=== PATIENT | female | born 1940 | race Caucasian/White ===

== ENCOUNTER → 2019-09-03 16:44 | Outpatient (CLI) | payer OTHER, SELFPAY ==
--- NOTE | ~2019-09-03 | XR_ITS ---
EXAMINATION: XR chest 2V EXAM DATE: 09/03/2019 17:01 INDICATION: Other forms of dyspnea. TECHNIQUE: Frontal and lateral projections of the chest obtained and reviewed. There is no prior pari dy for comparison. FINDINGS: Approximately 1 cm nodular opacity in the right suprahilar region, possible intraparenchym al nodule; recommend chest CT for further evaluation. There is moderate hyperinflation. Azygos fissur e. Borderline heart size. No pneumothorax or pleural effusion. No confluent consolidation. Mild bony degenerative changes. IMPRESSION: Indeterminate right suprahilar nodular density; follow-up chest CT without contrast beatriz mmended. Reviewed, dictated and finalized at location A. IE MIXER HELPER IMPRESSION: Indeterminate right suprahilar nodular density; follow-up chest CT without contrast recommended.
== END ==
PROVIDERS: PCP Family Medicine; Visit Provider Family Medicine
DX: R06.09 Other forms of dyspnea (principal); R91.8 Other nonspecific abnormal finding of lung field
CPT/HCPCS: 71046

== ENCOUNTER 2019-09-15 07:45 | Outpatient (CLI) | payer OTHER, SELFPAY ==
--- NOTE | ~2019-09-15 | PE_ITS ---
EXAMINATION: PET skull to mid thigh DATE: 09/15/2019 09:48 INDICATION: Lung nodule TECHNIQUE: Blood glucose level was 118 mg/dL. 10.329 mCi of 18-fluorodeoxyglucose (18-FDG) was admini stered i.v. Low dose computed tomography (CT) images were acquired from the base of the brain to the proximal thighs for attenuation correction and anatomic localization. Positron emission tomography (P ET) images were acquired in the same distribution beginning 71 minutes after injection. COMPARISON: CT, 09/09/2019 FINDINGS: Head/neck: There is mildly increased FDG uptake in the area of the lingual and palatine tonsils with mild associated tonsillar enlargement, most consistent with hyperplasia. No suspicious FDG uptake is identified. Chest: There is a stable 1.6 x 1.1 cm groundglass nodule of the right upper lobe which does not demon strate associated abnormal FDG uptake. A 6 mm nodule in the anteromedial aspect of the left upper lob e and a 4 mm nodule of the right lung apex do not demonstrate associated FDG uptake although this cou ld be due to their small size. There are no pathologically enlarged thoracic lymph nodes. The heart s ize is normal. There is no pleural effusion or pneumothorax Abdomen/pelvis/proximal thighs: No abnormal FDG uptake is identified. Physiologic FDG activity is pre sent in the bowel and urinary tract. The liver, spleen, pancreas, gallbladder, and adrenal glands are normal. The right kidney is unremarkable. There is a 1.2 cm nonobstructing stone of the left kidney lower pole. A tiny fat-containing umbilical hernia is noted. Colonic diverticulosis is present withou t evidence of diverticulitis. Musculoskeletal: Mild FDG uptake in the glenohumeral joints appears to be related to degenerative sanna nge. No suspicious FDG uptake is identified. IMPRESSION: 1. 1.6 cm subsolid nodule of the right upper lobe, and smaller nodules of the upper lobes, without as sociated FDG uptake. Follow-up CT in three months is recommended. 2. Nonobstructing left nephrolithiasis. Reviewed, dictated and finalized at location A. DRIVER IMPRESSION: 1. 1.6 cm subsolid nodule of the right upper lobe, and smaller nodules of the u pper lobes, without associated FDG uptake. Follow-up CT in three months is beatriz mmended. 2. Nonobstructing left nephrolithiasis.
[2019-09-15 08:04] LABS: Glucose Point of Care 118 (65-105)
== END 2019-09-15 07:46 | disposition home or self-care (01) ==
PROVIDERS: PCP Family Medicine; Visit Provider Family Medicine
DX: R91.8 Other nonspecific abnormal finding of lung field (principal); N20.0 Calculus of kidney
CPT/HCPCS: 78815; A9552

== ENCOUNTER 2019-12-04 09:38 | Observation (INO) | payer OTHER, SELFPAY ==
[2019-12-04] VITALS (12 sets, daily range): BP systolic 127–178; BP diastolic 57–78; PULSE 57–80; RESP 16–22; TEMP 36.4–37; O2SAT 95–99
--- NOTE | ~2019-12-04 | XR_ITS ---
EXAMINATION: XR chest 1V 12/04/2019 10:31 INDICATION: Shortness of breath. Stroke symptoms. PROCEDURE: AP view of the chest COMPARISON: 04/03/2020 FINDINGS: There is bibasilar atelectasis. No focal pneumonia or edema. The cardiomediastinal silhouet te is is borderline sized. There are no pleural effusions. There is no pneumothorax suspected. IMPRESSION: 1: Bibasilar atelectasis. Reviewed, dictated and finalized at location A. IMPRESSION: 1: Bibasilar atelectasis.
--- NOTE | ~2019-12-04 | CT_ITS ---
EXAMINATION: CTA brain carotid EXAM DATE: 12/06/2019 09:00 INDICATION: Right thalamic mass. Transient ischemic attack with left hemiparesis. TECHNIQUE: Noncontrast head CT. Spiral CTA of the carotid arteries was performed with intravenous i njection 100 cc of Omnipaque 350. Axial, coronal, sagittal reformatted images reviewed. Additional r eformatted images created on dedicated 3-D workstation. NASCET comparable standard used to assess th e degree of arterial stenosis. Spiral CT angiogram cerebral arteries performed with the same intrave nous injection of contrast. Source images of the brain CTA transferred to dedicated workstation for 3 -D rotational image creation. Coronal, sagittal maximum intensity pixel images also reviewed. The d ose-length product (DLP) for this examination was 3198.31 mGy-cm. The exposure was tailored accordi ng to patient size, and iterative reconstruction (ASIR) was used as additional dose reduction techniq ue. There is no prior study for comparison. FINDINGS: There is mild bilateral carotid bulb plaque with 0% stenosis bilaterally. Mild bilateral ca rotid siphon plaque without stenosis. Vertebral arteries are essentially codominant. There is no car otid or vertebral basilar arterial dissection or fibromuscular dysplasia. There are no cerebral arter y aneurysms. There is symmetric cerebral artery arborization. The sagittal, transverse and sigmoid si nuses enhance normally, no venous sinus thrombosis. Internal cerebral veins also enhance normally. There is no acute intraparenchymal hemorrhage. Again there is 9 mm focus, mildly hyperdense region al lexus the posterior aspect of the right thalamus, previously described. Appearance is most suggestive o f a cavernoma. No evidence of acute infarction. There is no mass effect or midline shift. There is no obstructive hydrocephalus suspected. There are no extra-axial collections. There are no calvarial acute fractures. Azygos fissure. IMPRESSION: 1. No cervical arterial dissection or cerebral artery aneurysm. 2. Mild scattered carotid plaque with 0% stenosis bilaterally. 3. 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 Reviewed, dictated and finalized at location A. IMPRESSION: 1. No cervical arterial dissection or cerebral artery aneurysm. 2. Mild scattered carotid plaque with 0% stenosis bilaterally. 3. 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
--- NOTE | ~2019-12-04 | CT_ITS ---
EXAMINATION: CT brain wo con DATE: 12/04/2019 10:24 INDICATION: Left hemiparesis. TECHNIQUE: Computed tomography (CT) of the head was performed without intravenous contrast. The mA wa s adjusted according to patient size. Iterative reconstruction technique was employed. The dose-lengt h product was 605.33 mGy-cm. COMPARISON: PET/CT 09/15/2019 FINDINGS: There is a 9 mm hyperdense mass in the right thalamus posteriorly. There are scattered area s of low attenuation in the cerebral white matter, which is within normal limits for the patient's ag e. There is no acute ischemic infarct or intracranial hemorrhage. The ventricles are normal in size. There are likely changes of ocular lens replacement surgeries. There is mild mucosal thickening in th e paranasal sinuses. The mastoid air cells are normal. IMPRESSION: 1. 9 mm hyperdense mass in the right thalamus, stable from 09/15/19. The differential diagnosis includ es dystrophic calcification and cavernoma. Metastatic disease is unlikely given the lack of vasogenic edema. Brain MRI without and with contrast is recommended. Reviewed, dictated and finalized at location A. IMPRESSION: 1. 9 mm hyperdense mass in the right thalamus, stable from 09/15/19. The differe ntial diagnosis includes dystrophic calcification and cavernoma. Metastatic dis ease is unlikely given the lack of vasogenic edema. Brain MRI without and with contrast is recommended.
--- NOTE | ~2019-12-04 | US_ITS ---
EXAMINATION: US carotid duplex BI EXAM DATE: 12/05/2019 09:20 INDICATION: Left hemiparesis, numbness. TECHNIQUE: Grayscale, color and pulsed Doppler images of the cervical carotid arteries were obtained . The degree of vessel stenosis is placed in one of the following categories: normal, <50% stenosis, 50-69% stenosis, >=70% stenosis but less than near-occlusion, near-occlusion, or occlusion. Note that percent stenosis relative to normal distal artery lumen diameter is indirectly measured from velocit y measurements as described by Jason, et al. Radiology 2003; 229:340-346. There is no prior study fo r comparison. FINDINGS: RIGHT SIDE: Right common carotid artery peak systolic velocity (PSV in cm/s): 98 Right bulb/internal carotid artery peak systolic velocity (PSV in cm/s): 87 Right internal carotid artery end diastolic velocity (EDV in cm/s): 20 Right ICA/CCA peak systolic ratio: 0.9 Right external carotid artery peak systolic velocity (PSV in cm/s): 128 Right vertebral artery antegrade flow: yes There is no focal plaque identified. LEFT SIDE: Left common carotid artery peak systolic velocity (PSV in cm/s): 119 Left bulb/internal carotid artery peak systolic velocity (PSV in cm/s): 98 Left internal carotid artery end diastolic velocity (EDV in cm/s): 24 Left ICA/CCA peak systolic ratio: 0.8 Left external carotid artery peak systolic velocity (PSV in cm/s): 118 Left vertebral artery antegrade flow: yes There is minimal carotid bulb plaque. Velocity and Doppler waveforms in the common and internal carotid arteries is normal. IMPRESSION: 1. Normal right internal carotid artery. 2. Less than 50 percent stenosis in the left internal carotid artery. > Reviewed, dictated and finalized at location A.
--- NOTE | ~2019-12-04 | MR_ITS ---
EXAMINATION: MR brain/brain stem wo/w con EXAM DATE: 12/04/2019 16:42 INDICATION: Left-sided hemiparesis. TECHNIQUE: Magnetic resonance imaging (MRI) of the brain/brain stem obtained without contrast. Sagit pranay T1, axial diffusion, gradient echo (T2*), T1, T2, FLAIR sequences obtained. Patient was then inj ected 19 cc intravenous Multihance contrast. Axial and coronal postcontrast T1 weighted sequences obt ained. Correlation is made to head CT 12/04/2019. FINDINGS: There are no areas of restricted diffusion to suggest acute infarction. There is no acute hemorrhage seen on the T2*, a hemosiderin sensitive sequence. . There is a small mass in the posteri or aspect of the right thalamus, with a central focus of enhancement measuring about 4 mm in diameter , and some surrounding increased T2 signal intensity, region overall measuring about 9 mm in size. Th is does not demonstrate any restricted diffusion, but does demonstrate susceptibility on gradient-ech o sequence. Could be a cavernoma or other benign histology more likely than malignancy. There is mil d periventricular and subcortical T2/FLAIR signal hyperintensity, nonspecific but probably related to small vessel ischemic disease (microangiopathy). There is mild prominence of the sulci and ventric les related to cerebral atrophy. There are no extra-axial collections. Flow voids are seen in the cerebral arteries on the T2-weighted sequences consistent with their expected patency. The orbits ar e unremarkable. Soft tissue is unremarkable. IMPRESSION: 1. Right thalamic 9 mm mass, more likely cavernoma or other benign histology than malignancy. Are th ere any old head CTs at outside institution for comparison? This was also identified on noncontrast h ead CT and could be followed up with that modality in 3-6 months. 2. Chronic age related findings. Reviewed, dictated and finalized at location A. IMPRESSION: 1. Right thalamic 9 mm mass, more likely cavernoma or other benign histology t altman malignancy. Are there any old head CTs at outside institution for compariso n? This was also identified on noncontrast head CT and could be followed up wit h that modality in 3-6 months. 2. Chronic age related findings.
--- NOTE | 2019-12-04 09:49 | ECG_ITS ---
Measurements Intervals [place] Rate: 61 P: 62 RI: 223 QRS: 4 QRSD: 100 T: 30 QT: 398 QTc: 404 Interpretive Statements SINUS RHYTHM WITH SINUS ARRHYTHMIA WITH FIRST DEGREE AV BLOCK BASELINE ARTIFACT- I, II, III ABNORMAL ECG Electronically Signed On 12-04-2019 15:07:22 CDT by Singh Camargo D.O.
--- NOTE | 2019-12-04 10:07 | ED.NEUROSD ---
HPI - Neuro Symptoms/Deficit General Chief Complaint: Neuro Symptoms/Deficit Stated Complaint: L SIDED WEAKNESS Time Seen by Provider: 12/04/19 09:44 History of Present Illness HPI Narrative: Patient is a 79-year-old female who presents to the ER with sudden onset left-sided weakness and slurred speech. Began at 9 AM. Lasted for approximately 15 minutes. Her left foot and arm felt heavy and tingly. Symptoms ascended from the foot to the arm. Patient also felt some head pressure. She reports blurriness in her left eye. Had some mild chest pressure afterwards. Patient's headache totally resolved in route with EMS. Patient is currently being worked up for some lung lesions that they do not think are cancerous at this time. Related Data Home Medications Medication Instructions Recorded Confirmed cholecalciferol (vitamin D3) 2,000 unit PO DAILY 12/04/19 12/04/19 [Vitamin D3] coQ10 (ubiquinol) 200 mg PO DAILY 12/04/19 12/04/19 diclofenac sodium 50 mg PO HS 12/04/19 12/04/19 famotidine [Pepcid] 20 mg PO DAILY 12/04/19 12/04/19 Allergies Allergy/AdvReac Type Severity Reaction Status Date / Time No Known Allergies Allergy Verified 12/04/19 09:53 Review of Systems Review of Systems: All systems reviewed & are unremarkable except as noted in HPI and below Constitutional: Constitutional: Denies chills, Denies fever(s) and Denies weakness ENT: Denies dizziness and Denies sore throat Cardiovascular: Cardiovascular: Reports chest pain, Denies rapid heart rate and Denies radiating jaw, neck or arm pain Respiratory: Respiratory: Denies cough, Denies dyspnea and Denies wheezing Gastrointestinal: Gastrointestinal: Denies abdominal pain, Denies nausea and Denies vomiting Neurologic: Denies dizziness, Denies syncope, Reports headache(s), Reports focal weakness and Reports numbness Comments: Mild slurring of speech PMFSH Social History Social History Smoking status: Never smoker Second hand tobacco smoke exposure: No Alcohol intake: current Drinks per week: 1 Substance use: never Substance use type: does not use Gender identity (if verbalized by the patient): Female Spiritual care concerns: No Agree to blood products: No Exam Narrative: Exam Narrative: GENERAL: Well-appearing, well-nourished, and in no acute distress. HEAD: Normocephalic, atraumatic. EYES: PERRL and EOMI. ENT: Mucous membranes moist. CHEST: Clear to auscultation. No respiratory distress. HEART: Regular rate and rhythm. Normal peripheral pulses. ABDOMEN: Soft, nontender, nondistended. EXTREMITIES: Normal range of motion. No edema. SKIN: Warm, dry, no rash. NEURO: No focal deficits. No upper or lower extremity drift. Cranial nerves II through XII intact. No dysarthria or expressive aphasia. Alert and oriented x3. PSYCH: Normal mood and affect. Course Course Emergency Course: Patient and family informed of results. Admit to hospital service to obtain MRI and observe for TIA. Vital Signs Vital signs: Vital Signs Temperature 98.6 F 12/04/19 09:37 Pulse Rate 77 12/04/19 09:37 Respiratory Rate 22 H 12/04/19 09:37 Blood Pressure 178/69 H 12/04/19 09:37 Pulse Oximetry 99 12/04/19 09:37 Temperature 98.6 F 12/04/19 09:37 Pulse Rate 65 12/04/19 14:43 Respiratory Rate 20 12/04/19 14:43 Blood Pressure 130/70 12/04/19 12:54 Pulse Oximetry 95 12/04/19 14:43 MDM - Neuro Symptoms/Deficit Lab Data Result diagrams: 12/04/19 10:13 12/04/19 10:13 Labs: Lab Results 12/04/19 12/04/19 12/04/19 Range/Units 10:13 10:13 10:13 WBC 6.4 (4.5-10.0) K/mm3 RBC 4.67 (4.2-5.4) M/mm3 Hgb 14.0 (12.0-15.0) g/dL Hct 42.6 (37.0-47.0) % MCV 91.2 (80-100) fl MCH 30.0 (26-34) pg MCHC 32.9 (32-36) g/dl RDW 12.2 (11.5-14.5) % Plt Count 231 (150-375) k/mm3 MPV 10.4 (7.4-10.4)
[2019-12-04 10:32] LABS: Basophils Percent Auto 0.5 % (0.2-1.2); Eosinophils Absolute Auto 0.3 K/mm3 (0-0.3); Eosinophils Percent Auto 3.9 % (0-4.4); Hematocrit 42.6 % (37.0-47.0); Immature Granulocyte Absolute 0.02 K/mm3 (0.00-0.031); Immature Granulocyte Percent A 0.3 % (0-0.5); Lymphocytes Absolute Auto 2.64 K/mm3 (0.9-3.2); Lymphocytes Percent Auto 41.4 % (18.3-44.2); Mean Corpuscular HGB Conc 32.9 g/dl (32-36); Mean Corpuscular Volume 91.2 fl (80-100); Mean Platelet Volume 10.4 fl (7.4-10.4); Monocytes Absolute Auto 0.5 K/mm3 (0.1-0.6); Monocytes Percent Auto 8.3 % (2.6-8.5); Neutrophils Absolute Auto 2.9 K/mm3 (1.3-6.7); Neutrophils Percent Auto 45.6 % (45.5-73.1); Platelet Count Result 231 k/mm3 (150-375); Red Blood Count 4.67 M/mm3 (4.2-5.4); Red Cell Distribution Width 12.2 % (11.5-14.5); White Blood Count 6.4 K/mm3 (4.5-10.0)
[2019-12-04 10:37] LABS: Add Urine Microscopic? YES; Appearance Urine Clear (Clear); Bacteria Urine Trace /hpf; Bilirubin Urine Negative (Negative); Blood Urine Negative (Negative); Color Urine Yellow (Yellow); Glucose Urine UA Negative (Negative); Ketones Urine Negative (Negative); Leukocyte Esterase Ur 1+ LEU/UL (Negative); Mucus Urine Rare /lpf; Nitrate Urine Negative (Negative); Protein Urine Negative (Negative); RBC Urine 0-2 /hpf (0-2); Specific Grav Ur 1.014 (1.001-1.035); Squamous Epithelial Cell Urine Occasional /hpf (Few); Urobilinogen Urine Negative mg/dL (<2.0)
[2019-12-04 10:42] LABS: INR 0.9
[2019-12-04 10:43] LABS: Partial Thromboplastin Time 23.5 SECONDS (22.3-36.8)
[2019-12-04 10:44] LABS: Blood Urea Nitrogen 18 mg/dL (7-17); Calcium 10.6 mg/dL (8.4-10.2); Carbon Dioxide 27 mmol/L (22-30); Chloride 108 mmol/L (98-107); Estimated CRCL calculation 82 ml/min; Estimated Glomerular Filt Rate > 60; Glucose 103 mg/dL (65-105); Potassium 4.4 mmol/L (3.4-5.0); Sodium 139 mmol/L (137-145)
[2019-12-04 10:55] LABS: Troponin I < 0.012 ng/mL (0.000-0.034)
--- NOTE | 2019-12-04 13:00 | ADMGEN ---
This patient, Patricia Damon, was admitted to 3 Medical Room 346-. Patient/family oriented to hospital policies and general routines including ID bracelet, bed and alarms, visiting hours, pain management, procedures, bathroom and other care routines, personal items, smoking policy, room service/diet, and visiting hours. Valuables list has been completed. Information on how to activate the Rapid Response Team has been discussed. Patient/Family are encouraged to report perceived risks to care and to ask questions if they do not understand what they are told or what they should do.
--- NOTE | 2019-12-04 14:55 | ECHO_ITS ---
Patient Info Name: Patricia Damon Age: 79 years : 1940 Gender: Female Ht: 69 in Wt: 209 lbs BSA: 2.18 m2 HR: 62 bpm BP: 130 / 70 mmHg Technical Quality: Fair Exam Date: 12/04/2019 3:11 PM Exam Location: [facility] Patient Status: Outpatient Admit Date: 12/04/2019 Staff Ordering Physician: Rukhsana Ralph PA-C Buildings And Grounds Coordinator: Leonardo Mclain RDCS, RT Attending Provider: Monet Molina MD Referring Physician: Loree LOPEZ; Exam Type: CA echo doppler color flow Study Info Indications G45.9 - Transient cerebral ischemic attack, unspecified Complete two-dimensional, color flow and Doppler transthoracic echocardiogram is performed. Summary 1. Left ventricular chamber dimension is normal. 2. Left ventricular systolic function is normal, estimated at 60-65%. 3. There is mildly increased left ventricular wall thickness. 4. The left ventricular diastolic function is grade I diastolic dysfunction. 5. E/e' 8 is minimally elevated. 6. Global longitudinal strain is normal at -18.5%. 7. Dilated inferior vena cava with >50% collapse upon inspiration consistent with elevated right atrial pressure, 10 mmHg. Left Ventricle E/e' 8 is minimally elevated. Global longitudinal strain is normal at -18.5%. Left ventricular chamber dimension is normal. Left ventricular systolic function is normal, estimated at 60-65%. There is mildly increased left ventricular wall thickness. The left ventricular diastolic function is grade I diastolic dysfunction. Right Ventricle Right ventricular chamber dimension is normal. Right ventricular systolic function is normal. Left Atria Left atrial chamber dimension is normal. Right Atria Right atrial chamber dimension is normal. Aortic Valve The aortic valve is trileaflet. There is no aortic valve stenosis. There is no aortic valve regurgitation. Pulmonic Valve There is no pulmonic regurgitation. Mitral Valve There is no mitral valve stenosis. There is no mitral valve regurgitation. Tricuspid Valve There is no tricuspid valve regurgitation. Pericardium/Pleural There is no pericardial effusion. Inferior Vena Cava Dilated inferior vena cava with >50% collapse upon inspiration consistent with elevated right atrial pressure, 10 mmHg. Aorta The aortic root size at the sinus of Valsalva is normal. Left Ventricular Outflow Tract Name Value Normal LVOT Doppler LVOT Peak Gradient 3 mmHg LVOT Mean Gradient 2 mmHg LVOT VTI 22 cm LVOT VTI/AV VTI Ratio 0.9 Mitral Valve Name Value Normal MV Doppler MV Decel [place] 257 cm/s2 MV PHT 77 ms MV Area (PHT) 2.9 cm2 4.0-5.0 MV Diastolic Function MV E Peak Velocity 68 cm/s
--- NOTE | 2019-12-04 20:45 | PM.IMHP ---
H&P: HPI History of Present Illness Chief complaint: Left-sided weakness. Narrative: Patricia Damon is a very pleasant 79-year-old female, right hand dominant, with osteoarthritis, thyroid goiter, and pre diabetes who presented to the emergency department earlier this morning via EMS from home for evaluation of left-sided weakness. She was in her usual state of health when she woke this morning. Not long prior to arrival, she was ambulating to the kitchen while sending a text message when she developed sudden onset left-sided weakness with her lower extremity being more affected than her upper extremity. At that time, her left visual field seemed to be a bit blurry and ?my head felt full.? She went to sit down in a chair, and notes that her left leg felt heavy and that she was dragging it somewhat. She then phoned her daughter, who in turn called EMS. Within approximately 10 minutes, her symptoms had improved enough that she was able to ambulate to the door to let the paramedics in to the home. Within approximately 2 hours, her symptoms completely resolved. She denies dysarthria but her daughter did think that her speech was perhaps a bit slurred. At the time my evaluation, her only complaint is of a mild headache. She has never had similar symptoms in the past. No vertigo. No palpitations or history of cardiac dysrhythmia. She has never been diagnosed with hypertension or dyslipidemia. Review of Systems Review of Systems: Narrative: Twelve systems were reviewed with pertinent positives and negatives as per HPI. No fever, chills, or sweats. No recent cold or flu-like symptoms. She has rarely had dysphagia over the years, which has been attributed to thyroid goiter. She has an upcoming appoint with an shot packer for evaluation of this in addition to pre diabetes and possible hyperparathyroidism due to persistent mild hypercalcemia. She has been having issues with her left shoulder since sustaining in fall in December 2018 and has done several rounds of physical therapy without a whole lot of benefit. She is now taking diclofenac for that, in addition to other arthritic pains. Additionally, she mentions carpal tunnel symptoms in the right hand for which she is beginning to wear brace. No exertional chest pain. She has been having shortness of breath, and in fact saw Dr. Stoddard recently who recommended outpatient pulmonary function tests and stress Lexiscan. Additionally, the patient is being followed by Dr. Stoddard for pulmonary nodules. Appetite has been good. No nausea, vomiting, or diarrhea. Weight has been stable. Except as documented, all other systems were reviewed and are negative. [facility] Past Medical History Medical History (Updated 12/04/19 @ 22:09 by Rukhsana Ralph PA-C) Abnormal stress test In December 2005. Cardiac catheterization in January 2006 was reportedly unremarkable. Basal cell carcinoma Excised from the nose. Hyperlipidemia Multinodular non-toxic goiter Nephrolithiasis Nodule of right lung Being monitored by Dr. Stoddard. PET CT 09/15/2019 revealed several nodules without abnormal FDG uptake. Repeat chest CT scheduled in the next month or so. Osteoarthritis Pre-diabetes Vitamin D deficiency Surgical History Surgical History (Updated 12/04/19 @ 22:06 by Rukhsana Ralph PA-C) History of Achilles tendon repair History of arthroscopy of left knee History of cataract extraction History of partial hysterectomy History of radial keratotomy History of tonsillectomy History of total knee replacement History of tubal ligation Family History Family History (Updated 12/04/19 @ 22:15 by Rukhsana Ralph PA-C) Mother Family history of cardiovascular disease Sibling Family history of malignant neoplasm Family history of diabetes mellitus in first degree relative Family history of congestive heart failure Father Family history of lung cancer Son Parkinson disease Other Depression Diabetes mellitus Family hi
[2019-12-04] MEDS: ASPIRIN 81 MG CHEWABLE TABLET 324 MG PO (23:56)
[2019-12-05] VITALS (10 sets, daily range): BP systolic 110–140; BP diastolic 59–60; PULSE 58–84; RESP 16; TEMP 36.3–36.5; O2SAT 97–98
[2019-12-05 05:56] LABS: Alanine Aminotransferase 41 U/L (4-35); Albumin Level 3.9 g/dL (3.5-5.1); Alkaline Phosphatase 86 U/L (38-126); Aspartate Amino Transferase 30 U/L (14-36); Bilirubin,Total 0.7 mg/dL (0.2-1.3); Blood Urea Nitrogen 17 mg/dL (7-17); Calcium 9.9 mg/dL (8.4-10.2); Carbon Dioxide 27 mmol/L (22-30); Chloride 107 mmol/L (98-107); Cholesterol 173 mg/dL (0-200); Estimated CRCL calculation 82 ml/min; Estimated Glomerular Filt Rate > 60; Glucose 115 mg/dL (65-105); HDL Direct 22 mg/dL; Potassium 4.2 mmol/L (3.4-5.0); Sodium 142 mmol/L (137-145); Triglycerides 189 mg/dL (<150)
[2019-12-05 06:06] LABS: LDL Cholesterol Direct 117 mg/dL
[2019-12-05] MEDS: FAMOTIDINE 20 MG TABLET PO ×2 (09:48→20:54)
[2019-12-05] MEDS: ASPIRIN 81 MG ENTERIC TABLET PO (09:48)
[2019-12-05] MEDS: CHOLECALCIFEROL 1,000 UNIT TABLET 2000 UNITS PO (09:48)
--- NOTE | 2019-12-05 13:49 | ECG_ITS ---
Measurements Intervals [place] Rate: 60 P: 64 [place]: 220 QRS: 7 QRSD: 108 T: 46 QT: 427 QTc: 428 Interpretive Statements SINUS RHYTHM WITH FIRST DEGREE AV BLOCK BASELINE ARTIFACT- V1, V6 ABNORMAL ECG Electronically Signed On 12-05-2019 16:28:41 CDT by Singh Camargo D.O.
--- NOTE | 2019-12-05 14:52 | PM.DS ---
DS: Diagnosis Admitting Diagnosis Admitting Diagnosis: Other abnormal findings on diagnostic imaging of central nervous system Discharge Diagnosis (1) Left-sided weakness: Code(s): R53.1 - Weakness Status: Acute Assessment and Plan: Discharge 12/06/2019 at 1500 Likely TIA given resolution of symptoms within several hours. Brain MRI showed chronic age related findings, no acute or chronic infarcts found. CTA Head/neck showed No cervical arterial dissection or cerebral artery aneurysm. Mild scattered carotid plaque with 0% stenosis bilaterally. 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 Carotid Doppler ultrasounds showed normal right internal carotid artery. Less than 50 percent stenosis in the left internal carotid artery. Echocardiogram Left ventricular chamber dimension is normal. Left ventricular systolic function is normal, estimated at 60-65%. There is mildly increased left ventricular wall thickness. The left ventricular diastolic function is grade I diastolic dysfunction. E/e' 8 is minimally elevated. Global longitudinal strain is normal at -18.5%. Dilated inferior vena cava with >50% collapse upon inspiration consistent with elevated right atrial pressure, 10 mmHg. The patients EKG showed NSR but her Tele showed NSR with a HR of 63 bpm, with few PVC and PACs. Cardiology evaluated the patient today and did not see any atrial flutter or atrial fibrillation on her telemetry or on her EKG's. He feels she will benefit from a Loop Recorder for further monitoring of Afib/Flutter since she had a TIA. Patient is feeling well today and continues to be asymptomatic. Continue on ASA 81 milligrams daily and Atorvastatin 80 mg Have her recheck lipids in 3 months with PCP. Neurology evaluated the patient and feels comfortable with discharging the patient at this time. (2) Abnormal brain CT: Code(s): R90.89 - Other abnormal findings on diagnostic imaging of central nervous system Status: Acute Assessment and Plan: 9 millimeter hyperdense mass noted in the right thalamus, which is stable from 09/15/2019 on PET Scan. MRI showed Right thalamic 9 mm mass, more likely cavernoma or other benign histology than malignancy. Are there any old head CTs at outside institution for comparison? This was also identified on noncontrast head CT and could be followed up with that modality in 3-6 months. Informed the patient about this finding and that she needs a repeat CT in 3-6 months. (3) Elevated blood pressure reading: Code(s): R03.0 - Elevated blood-pressure reading, without diagnosis of hypertension Status: Acute Assessment and Plan: Blood pressure was 178/69 arrival to the emergency department, but has improved. The patients BP this morning was 121/50. She does appear anxious. (4) HLD (hyperlipidemia): Code(s): E78.5 - Hyperlipidemia, unspecified Status: Acute Assessment and Plan: Total cholesterol was within normal limits at 173, but her LDL was elevated at 117 and now that we know she has Mild Carotid Stenosis <50% will start her on Atorvastatin 80 mg once daily for a goal LDL <70 to prevent further plaque build up. Repeat Fasting Lipid Panel in 3 months with PCP. DS: Summary Hospital Course Reason for hospitalization: The patient is a 79-year-old woman with a history of osteoarthritis, thyroid goiter, prediabetes, who presented to the ER via EMS after having symptoms of left-sided weakness. Symptoms improved within about 10 minutes and complete resolved within about 2 hours. The patient's initial vitals showed, temperature of 98.6?, blood pressure 178/69, heart rate 77, respiratory rate 22, oxygen saturation 99% on room air. Labs showed normal CBC with differential, normal coag panel, BMP showed slightly elevated BUN
--- NOTE | 2019-12-05 15:52 | WPDNEURCNPN ---
Assessment and Plan Assessment and plan (1) HLD (hyperlipidemia): Code(s): E78.5 - Hyperlipidemia, unspecified Status: Acute (2) Left-sided weakness: Code(s): R53.1 - Weakness Status: Acute (3) Abnormal brain CT: Code(s): R90.89 - Other abnormal findings on diagnostic imaging of central nervous system Status: Acute (4) Brain lesion: Code(s): G93.9 - Disorder of brain, unspecified Status: Acute (5) Brain TIA: Code(s): G45.9 - Transient cerebral ischemic attack, unspecified Status: Acute (6) Nodule of right lung: Code(s): R91.1 - Solitary pulmonary nodule Status: Acute (7) Vitamin D deficiency: Code(s): E55.9 - Vitamin D deficiency, unspecified Status: Acute (8) Osteoarthritis: Code(s): M19.90 - Unspecified osteoarthritis, unspecified site Status: Acute (9) Multinodular non-toxic goiter: Code(s): E04.2 - Nontoxic multinodular goiter Status: Acute (10) Hyperparathyroidism: Code(s): E21.3 - Hyperparathyroidism, unspecified Status: Acute (11) Hypercalcemia: Code(s): E83.52 - Hypercalcemia Status: Acute (12) Hyperlipidemia: Code(s): E78.5 - Hyperlipidemia, unspecified Status: Acute (13) Abnormal results of liver function studies: Code(s): R94.5 - Abnormal results of liver function studies Status: Acute (14) AK (actinic keratosis): Code(s): L57.0 - Actinic keratosis Status: Acute (15) Family history of diabetes during : Code(s): Z83.3 - Family history of diabetes mellitus Status: Acute (16) Hyperglycemia: Code(s): R73.9 - Hyperglycemia, unspecified Status: Acute Additional Plan because of the presence of the lesion in the right cerebral hemisphere the symptoms could well have been related to this which care per Radiology seems to be a cavernoma or a benign lesion rather than the malignant lesion and it has been stable between August and now the question at this point is whether to anticoagulate her on a shaky basis of atrial flutter so rather than sending her home and taking a risk I having this episode if it is indeed a proximal atrial fibrillation she should be monitored here with the cardiology consult in the meantime aspirin and the statin should be continued I have discussed with her and her daughter on the telephone all the option risk in the benefits I think this will be a safer route rather than discharging her she is agreeable for the same and have asked the nurse to be in touch with the hospitalist nurse nurse to keep her ear on the telemetry and have a cardiology consult risk in the benefits of aspirin versus if indeed it is a case of proximal at which she castañeda with normal anti Beckford is have been discussed with her Consult date: 12/05/19 Time Seen: 15:30 HPI: Patricia Damon is a 79 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 Beautifully than history was reviewed and also spoke with the hospitalist practicing nurse the patient is doing well and the question is whether not she has atrial flutter / atrial fib although the EKG is not will be telemetry showed some concern for the same. Further asking the patient tells me that she did have unusual type of head pain on the right side several days ago and but is was not associated with any left-sided symptoms at all and the no prior history of the same. She is a nonsmoker and does have a history of seeing a supervisor reclamation few years ago however not recently Review of Systems Review of Systems: All systems reviewed & are unremarkable except as noted in HPI and below PMFSH Past Medical History Medical History (Reviewed 12/05/19 @ 1
--- NOTE | 2019-12-05 16:26 | PM.IMPN ---
Progress Note: A&P Assessment and Plan (1) Left-sided weakness: Code(s): R53.1 - Weakness Status: Acute Assessment and Plan: Likely TIA given resolution of symptoms within several hours. Brain MRI showed chronic age related findings, no acute or chronic infarcts found. Carotid Doppler ultrasounds showed normal right internal carotid artery. Less than 50 percent stenosis in the left internal carotid artery. Echocardiogram Left ventricular chamber dimension is normal. Left ventricular systolic function is normal, estimated at 60-65%. There is mildly increased left ventricular wall thickness. The left ventricular diastolic function is grade I diastolic dysfunction. E/e' 8 is minimally elevated. Global longitudinal strain is normal at -18.5%. Dilated inferior vena cava with >50% collapse upon inspiration consistent with elevated right atrial pressure, 10 mmHg. The patients EKG showed NSR but her Tele showed possible concerns for Atrial Flutter with slight irregularity and U wave vs flutter wave. Dr. Robison Neurology evaluated the patient and feels she needs a Cardiac Consultation to rule out Atrial Flutter. The patient will be staying again overnight on Telemetry and Cardiology will be consulted. Continue ASA 81 milligrams daily and start Atorvastatin 80 mg Continue monitoring. (2) Abnormal brain CT: Code(s): R90.89 - Other abnormal findings on diagnostic imaging of central nervous system Status: Acute Assessment and Plan: 9 millimeter hyperdense mass noted in the right thalamus, which is stable from 09/15/2019 on PET Scan. MRI showed Right thalamic 9 mm mass, more likely cavernoma or other benign histology than malignancy. Are there any old head CTs at outside institution for comparison? This was also identified on noncontrast head CT and could be followed up with that modality in 3-6 months. Informed the patient about this finding and that she needs a repeat CT in 3-6 months. (3) Elevated blood pressure reading: Code(s): R03.0 - Elevated blood-pressure reading, without diagnosis of hypertension Status: Acute Assessment and Plan: Blood pressure was 178/69 arrival to the emergency department, but has improved. The patients BP this morning was 110/59. She does appear anxious. (4) HLD (hyperlipidemia): Code(s): E78.5 - Hyperlipidemia, unspecified Status: Acute Assessment and Plan: Total cholesterol was within normal limits at 173, but her LDL was elevated at 117 and now that we know she has Mild Carotid Stenosis <50% will start her on Atorvastatin 80 mg once daily for a goal LDL <70 to prevent further plaque build up. Repeat Fasting Lipid Panel in 3 months with PCP. Time Spent With Patient Time with patient: 25 - 35 minutes Subjective Date/time seen: 12/05/19 16:26 Interval history: Date of Service 12/05/2019: The patient is feeling well today. She is back to her baseline and denies anymore weakness since yesterday. She denies any chest pain, palpitations, fluttering, shortness of breath, cough, fever, chills, nausea, vomiting, diarrhea, leg swelling, calf pain, lightheadedness, dizziness, vision changes or any other symptoms at this time. Review of Systems Review of Systems: All systems reviewed & are unremarkable except as noted in HPI and below Exam Narrative: Exam Narrative: General: 79-year-old woman walking around her room. Appears comfortable. In no acute distress. Skin: No jaundice or cyanosis. Good skin turgor. Neck: Full range of motion. Supple. Respiratory: Lungs are clear to auscultation bilaterally. No bony chest wall tenderness. Cardiovascular: The heart has a regular rate and rhythm without murmur. Lower extremities: No lower extremity e
[2019-12-05] MEDS: ATORVASTATIN 40 MG TABLET 80 MG PO (20:54)
[2019-12-05] MEDS: DICLOFENAC SOD 25 MG TABLET.EC 50 MG PO (20:55)
[2019-12-06] VITALS (10 sets, daily range): BP systolic 121–148; BP diastolic 50–64; PULSE 61–88; RESP 14–18; TEMP 36.2–36.7; O2SAT 93–95
[2019-12-06] MEDS: CHOLECALCIFEROL 1,000 UNIT TABLET 2000 UNITS PO (08:14)
[2019-12-06] MEDS: ASPIRIN 81 MG ENTERIC TABLET PO (08:14)
--- NOTE | 2019-12-06 13:02 | PM.CNCAR ---
Assessment and Plan Additional Plan TIA, mild cartoid artery stenosis, Tele and EKG shows no AF or flutter, TTE is unremarkable, plan Loop recorder, ASA and statin History of Present Illness History of Present Illness Consult date/time: 12/06/19 13:02 Consult reason: Other (stroke) Reason For Visit: Left-sided weakness. Narrative: Dayana presented on saturday with acute onset left side weakness and numbness with difficulty walking. Symptoms resolved before arrival ot ER and has not been recurrent since then. There was concern about underlying AF or flutter and was kept in tele units since admission. She had no Hx of cardiac disease but pending test lexiscan in December but not clear indication. Review of Systems Review of Systems: All systems reviewed & are unremarkable except as noted in HPI and below PMFSH Past Medical History Medical History Abnormal stress test In December 2005. Cardiac catheterization in January 2006 was reportedly unremarkable. Basal cell carcinoma Excised from the nose. Hyperlipidemia Multinodular non-toxic goiter Nephrolithiasis Nodule of right lung Being monitored by Dr. Stoddard. PET CT 09/15/2019 revealed several nodules without abnormal FDG uptake. Repeat chest CT scheduled in the next month or so. Osteoarthritis Pre-diabetes Vitamin D deficiency Surgical History Surgical History History of Achilles tendon repair History of arthroscopy of left knee History of cataract extraction History of partial hysterectomy History of radial keratotomy History of tonsillectomy History of total knee replacement History of tubal ligation Family History Family History Mother Family history of cardiovascular disease Sibling Family history of malignant neoplasm Family history of diabetes mellitus in first degree relative Family history of congestive heart failure Father Family history of lung cancer Son Parkinson disease Other Depression Diabetes mellitus Family history of alcoholism Family history of kidney disease Malignant neoplasm of prostate Social History Social History Social History: Healthcare power of erisa attorney: Gabbi Andrea, daughter. Code status: Full code. Smoking status: Never smoker Alcohol intake: current Drinks per week: 1 Substance use: never Additional living arrangements comments: Patient lives in her own home in [place], [place]. 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 Spiritual care concerns: No Agree to blood products: No Meds Home Medications and Allergies Home Medications Medication Instructions Recorded Confirmed Type cholecalciferol (vitamin D3) 2,000 unit PO DAILY 12/04/19 12/04/19 History [Vitamin D3] coQ10 (ubiquinol) 200 mg PO DAILY 12/04/19 12/04/19 History diclofenac sodium 50 mg PO HS 12/04/19 12/04/19 History famotidine [Pepcid] 20 mg PO DAILY 12/04/19 12/04/19 History Allergies Allergy/AdvReac Type Severity Reaction Status Date / Time No Known Allergies Allergy Verified 12/04/19 09:53 Vital Signs Vital Signs - 24 hr 12/05/19 14:25 12/05/19 16:00 12/05/19 18:00 Temperature 36.3 C L Pulse Rate 58 L 82 68 Respiratory Rate 16 Blood Pressure 110/59 L Pulse Oximetry 97 12/05/19 20:00 12/05/19 22:00 12/06/19 00:00 Temperature 36.7 C Pulse Rate 84 67 88 Respiratory Rate 16 Blood Pressure 148/57 H Pulse Oximetry 93 12/06/19 00:31 12/06/19 02:00 12/06/19 04:06 Temperature Pulse Rate 61 66 64 Respiratory Rate Blood Pressure Pulse Oximetry 12/06/19 06:00 12/06/19 06:13 12/06/19 08:00 Temperature 36.3 C L Pulse Rate 64 61 61 Respiratory Rate 18 18 Blood Pressure 121/50 L Pulse Oximetr
== END 2019-12-06 15:30 | disposition home or self-care (01) ==
LOC: ANHED 12:17 → ANH3MED 15:11
PROVIDERS: Physician Assistant; Admitting Provider Family Medicine; Emergency Provider Emergency Medicine; PCP Family Medicine; Visit Provider Physician Assistant
DX: R53.1 Weakness (principal); R90.89 Other abnormal findings on diagnostic imaging of central nervous system; R03.0 Elevated blood-pressure reading, without diagnosis of hypertension; E78.5 Hyperlipidemia, unspecified; M19.90 Unspecified osteoarthritis, unspecified site; E04.2 Nontoxic multinodular goiter; R73.03 Prediabetes; E55.9 Vitamin D deficiency, unspecified; I65.22 Occlusion and stenosis of left carotid artery; R91.1 Solitary pulmonary nodule; R94.5 Abnormal results of liver function studies; E21.3 Hyperparathyroidism, unspecified; L57.0 Actinic keratosis; Z79.899 Other long term (current) drug therapy; Z96.659 Presence of unspecified artificial knee joint
CPT/HCPCS: 36415; 70450; 70496; 70498; 70553; 71045; 80048; 80053; 80061; 81001; 84484; 85025; 85610; 85730; 87086; 93005; 93306; 93880; 99285; A9270; A9577; G0378; Q9967

== ENCOUNTER 2020-01-01 07:40 | Outpatient (CLI) | payer OTHER, SELFPAY ==
--- NOTE | 2020-01-01 | EST_ITS ---
Patient Info Name: Patricia Damon Age: 79 years : 1940 Gender: Female Ht: 68 in Wt: 200 lbs BSA: 2.11 m2 Exam Date: 01/01/2020 9:03 AM Exam Location: [facility] Patient Status: Outpatient Admit Date: 01/01/2020 Staff Ordering Physician: Laura Stoddard MD Attending Provider: Laura Stoddard MD Exercise Technologist: Leigh Ann Roblero RDCS Nurse: Gabriella Sanches ANP, ACNP- Exam Type: CA stress loly w NM Study Info Indications R06.9 - Unspecified abnormalities of breathing A regadenoson stress test was performed. Summary 1. Normal sinus rhythm - normal ECG. 2. No ischemic ECG changes following injection of Lexiscan. 3. Clinically and electrocardiographically negative Lexiscan stress test. 4. Myocardial perfusion imaging study to be dictated by the Radiology Department. Protocol: Lexiscan Stress ECG Details Stage: REST Duration (min): 6 min : 16 sec HR (bpm): 59 SBP (mmHg): 133 DBP (mmHg): 77 Stage: REST Duration (min): 12 min : 15 sec HR (bpm): 59 SBP (mmHg): 133 DBP (mmHg): 77 Stage: STAGE 1 Duration (min): 0 min : 59 sec HR (bpm): 84 SBP (mmHg): 159 DBP (mmHg): 96 Stage: RECOVERY Duration (min): 1 min : 0 sec HR (bpm): 83 SBP (mmHg): 152 DBP (mmHg): 86 Stage: RECOVERY Duration (min): 2 min : 0 sec HR (bpm): 78 SBP (mmHg): 152 DBP (mmHg): 86 Stage: RECOVERY Duration (min): 3 min : 0 sec HR (bpm): 77 SBP (mmHg): 127 DBP (mmHg): 66 Stage: RECOVERY Duration (min): 3 min : 46 sec HR (bpm): 78 SBP (mmHg): 127 DBP (mmHg): 66 Rest HR: 59 bpm Peak HR: 87 bpm Rest Sys BP: 133 mmHg Peak Sys BP: 159 mmHg Max Pred HR: 143 bpm % Max Pred HR: 61 % Target HR: 122 bpm Max RPP: 13,833 bpm*mmHg BP Response: Normal blood pressure response Termination Reason: Completed protocol Cardiac Symptoms: Shortness of breath Total Time: 1 min : 0 sec Rest Bernard BP: 77 mmHg Peak Bernard BP: 96 mmHg Total Dose: 0.4 mg Resting ECG Normal sinus rhythm - normal ECG. Stress ECG No ischemic ECG changes following injection of Lexiscan. Arrhythmias 1 PVC noted during the examination. Report Signatures
--- NOTE | ~2020-01-01 | NM_ITS ---
EXAMINATION: NM loly stress w perfusion DATE: 01/01/2020 10:54 INDICATION: Abnormal electrocardiogram. Other forms of dyspnea. TECHNIQUE: Rest images were obtained following intravenous administration of 10.0 mCi Tc99m tetrofosm in (Myoview). The patient was infused intravenously with Lexiscan (regadenoson). Then, 30.7 mCi Tc99m tetrofosmin (Myoview) was administered intravenously, and stress images were obtained. Data was beatriz nstructed into short axis and horizontal and vertical long axis SPECT images. Gated SPECT images were also obtained. COMPARISON: None. FINDINGS: There is no definite reversible or fixed perfusion abnormality to suggest ischemia or infar ction. There is no segmental wall motion abnormality. Left ventricular ejection fraction measures 6 5%. IMPRESSION: 1. No definite ischemia or infarct. 2. Normal left ventricular ejection fraction measuring 65%. Reviewed, dictated and finalized at location A.
--- NOTE | 2020-01-12 17:45 | WPDPFTINT ---
PFT Interpretation PFT Interpretation: DOS: 01/01/2020 REQUESTING: Dr Stoddard REASON FOR TESTING: shortness of breath PULMONARY FUNCTION TESTS Results are reproducible and reliable. Spirometry: FEV1 94%, 2.06 L; FVC 95%, FEV1% is 69% which is normal for age. ZTE35-81% is 55%. There is no change with bronchodilator administration. Lung volumes: TLC 92%, normal. residual volume 92% normal. normal airway resistance. Diffusion: DLCO 62% mildly decreased. Flow volume loop: Normal. IMPRESSION: Normal spirometry, lung volumes with mild diffusion impairment. Isolated decrease in diffusion can be due to anemia, early ILD< chronic thromboembolic disease such is pulmonary emboli or collagen vascular disease with pulmonary vascular involvement. Clinical correlation is recommended. Laura Stoddard MD
== END 2020-01-01 07:41 | disposition home or self-care (01) ==
PROVIDERS: PCP Family Medicine; Visit Provider Internal Medicine Critical Care Medicine
DX: R06.09 Other forms of dyspnea (principal); R06.02 Shortness of breath
CPT/HCPCS: 78452; 93017; 94060; 94618; 94726; 94729; A9502; J2785

== ENCOUNTER 2020-01-15 10:49 | Outpatient (CLI) | payer OTHER, SELFPAY ==
--- NOTE | ~2020-01-15 | CT_ITS ---
EXAMINATION: CT chest w con DATE: 01/15/2020 11:21 INDICATION: Lung nodule TECHNIQUE: Transaxial computed tomographic images of the chest were obtained after the administration of 75 cc of Omnipaque 350 intravenous contrast. The dose-length product (DLP) was 261.19 mGy-cm. Ite rative reconstruction was used. COMPARISON: 09/09/2019 FINDINGS: There is a persistent 1.8 x 1.1 cm nodule of the right upper lobe which is stable to slight ly increased in size. A 4 mm subsolid nodule of the right lung apex is stable. Also seen is a stable 6 mm nodule in the anteromedial aspect of the left upper lobe on image 42. There is no pleural effusi on or pneumothorax. No pathologically enlarged thoracic lymph nodes are identified. The heart size is normal. There is mild thoracic spondylosis. IMPRESSION: 1. Right upper lobe nodule, stable to slightly increased in size. CT-guided biopsy is recommended. Reviewed, dictated and finalized at location A. IMPRESSION: 1. Right upper lobe nodule, stable to slightly increased in size. CT-guided bio psy is recommended.
[2020-01-15 11:16] LABS: Estimated Glomerular Filt Rate > 60
== END 2020-01-15 10:50 | disposition home or self-care (01) ==
PROVIDERS: PCP Family Medicine; Visit Provider Internal Medicine Critical Care Medicine
DX: R91.1 Solitary pulmonary nodule (principal)
CPT/HCPCS: 36415; 71260; Q9967

== ENCOUNTER 2020-01-28 12:58 | Outpatient (CLI) | payer OTHER, SELFPAY ==
--- NOTE | ~2020-01-28 | NM_ITS ---
EXAMINATION: NM pulmonary perfusion DATE: 01/28/2020 13:43 INDICATION: Shortness of breath TECHNIQUE: 5.3 mCi Tc-99m MAA by intravenous route. Scintigraphic images of the chest were obtained. COMPARISON: FINDINGS: There is relatively homogeneous perfusion throughout the lungs with no perfusion defects identified. IMPRESSION: 1. Normal perfusion study of the lungs. Reviewed, dictated and finalized at location A.
--- NOTE | ~2020-01-28 | XR_ITS ---
XR chest 2V 01/28/2020 13:42 Indication: Shortness of breath Procedure: 2 view chest Comparison: Comparison to multiple prior studies sequentially, with oldest reviewed study date2019. Findings: Interval development of bibasilar and right perihilar infiltrates, compatible with pneumoni a. Heart size normal. No pleural effusion or pneumothorax. Impression: 1: Developing patchy bilateral airspace disease, compatible with pneumonia. Reviewed, dictated and finalized at location A. Impression: 1: Developing patchy bilateral airspace disease, compatible with pneumonia.
== END 2020-01-28 12:59 | disposition home or self-care (01) ==
PROVIDERS: PCP Family Medicine; Visit Provider Internal Medicine Critical Care Medicine
DX: R06.02 Shortness of breath (principal); R91.8 Other nonspecific abnormal finding of lung field
CPT/HCPCS: 71046; 78580; A9540

== ENCOUNTER 2020-01-29 09:02 | Outpatient (CLI) | payer OTHER, SELFPAY ==
[2020-01-27 09:16] VITALS: BMI 30.4
[2020-01-29] VITALS (12 sets, daily range): BP systolic 124–145; BP diastolic 53–112; PULSE 65–90; RESP 17–20; TEMP 36.7; O2SAT 91–99
--- NOTE | ~2020-01-29 | XR_ITS ---
EXAMINATION: XR chest 1V portable DATE: 01/29/2020 at 12:49 PM INDICATION: Status post percutaneous biopsy of a right upper lobe nodule. TECHNIQUE: frontal view of the chest was obtained. COMPARISON: Chest radiograph dated 01/29/2020 at 11:43 AM FINDINGS: Resolution of the prior pulmonary hemorrhage surrounding the biopsied subtle nodule in the right uppe r lobe. Mild discoid atelectasis in the right midlung zone. No pulmonary edema, pleural effusion or p neumothorax. Normal variant azygos lobe and fissure. The cardiomediastinal silhouette is normal. Mode rate polyarticular osteoarthritis at the lateral shoulders. Suggestion of old healed left clavicle fr acture deformity. IMPRESSION: 1. Resolution of prior pulmonary hemorrhage surrounding the biopsied right upper lobe nodule. Reviewed, dictated and finalized at location A. IMPRESSION: 1. Resolution of prior pulmonary hemorrhage surrounding the biopsied right uppe r lobe nodule.
--- NOTE | ~2020-01-29 | XR_ITS ---
EXAMINATION: XR chest 1V portable DATE: 01/29/2020 14:35 INDICATION: Status post percutaneous biopsy of a right upper lobe nodule. TECHNIQUE: frontal view of the chest was obtained. COMPARISON: Chest radiograph dated 01/29/2020 at 11:43 AM and 12:49 PM FINDINGS: Airspace opacity in the right upper lung zone consistent with the biopsied nodule, adjacent unchanged discoid atelectasis and likely minimal residual associated pulmonary hemorrhage. No pulmonary edema, pleural effusion or pneumothorax. Incidentally noted azygos lobe and fissure. The cardiomediastinal silhouette is normal. IMPRESSION: 1. Right upper lobe nodule with adjacent discoid atelectasis and likely minimal residual hemorrhage r elated to biopsy. No pneumothorax or pleural effusion. Reviewed, dictated and finalized at location A. IMPRESSION: 1. Right upper lobe nodule with adjacent discoid atelectasis and likely minimal residual hemorrhage related to biopsy. No pneumothorax or pleural effusion.
--- NOTE | ~2020-01-29 | CT_ITS ---
EXAMINATION: CT biopsy lung DATE: 01/29/2020 11:45 INDICATION: Right lung nodule TECHNIQUE: The procedure including the risks and benefits was discussed with the patient. Risks discu ssed included infection, approximately 1/20 risk of symptomatic hemorrhage beyond mild hemoptysis, ap proximately 1/3 risk of pneumothorax, and approximately 1/10 risk of pneumothorax severe enough to wa rrant chest tube placement. The patient understood the risks and agreed to proceed. The patient was p laced prone. The skin overlying the posterior right hemithorax was prepped and draped in sterile fas hion. Anesthetic was administered with 1% lidocaine subcutaneously. A 19 gauge outer needle was adv anced under CT guidance to the lesion of interest. A 20 gauge core biopsy needle was then used to obt ain 3 core biopsy specimens. The needle was removed and the entry site was cleaned and dressed. Ther e were no immediate complications. The mAs was manually decreased to reduce radiation dose. The dose- length product was 508.39 mGy-cm. FINDINGS: CT images demonstrate the outer needle tip adjacent to a 2.0 x 1.3 cm spiculated nodule in the posterior segment of the right upper lobe. IMPRESSION: 1. Successful CT-guided biopsy of a 2.0 x 1.3 cm right upper lobe nodule concerning for primary bronc hogenic carcinoma.. Reviewed, dictated and finalized at location A. IMPRESSION: 1. Successful CT-guided biopsy of a 2.0 x 1.3 cm right upper lobe nodule concer riccardo for primary bronchogenic carcinoma..
--- NOTE | ~2020-01-29 | XR_ITS ---
EXAMINATION: XR chest 1V DATE: 01/29/2020 11:46 INDICATION: Right lung nodule status post percutaneous biopsy. TECHNIQUE: A single frontal view of the chest was obtained. COMPARISON: Chest CT 01/15/2020 FINDINGS: There are airspace opacities in right midlung zone. No pleural effusion or pneumothorax. Th e heart size is normal. IMPRESSION: 1. Airspace opacities in right midlung zone, consistent with hemorrhage. Reviewed, dictated and finalized at location E.
[2020-01-29 09:32] LABS: Mean Platelet Volume 10.1 fl (7.4-10.4); Platelet Count Result 210 k/mm3 (150-375)
[2020-01-29 09:42] LABS: INR 0.9; Prothrombin Time 12.3 Seconds (11.1-14.7)
--- NOTE | 2020-01-29 13:21 | SUR.PHASEII ---
1245 PORTABLE CHEST XRAY TAKEN.
--- NOTE | 2020-01-29 13:21 | SUR.PHASEII ---
1210 SPOKE WITH DAUGHTER STEPHANIE PER PHONE- UPDATE GIVEN.
--- NOTE | 2020-01-29 14:41 | SUR.PHASEII ---
1435 PORTABLE CHEST XRAY TAKEN.
== END 2020-01-29 09:03 | disposition home or self-care (01) ==
PROVIDERS: Radiology Diagnostic Radiology; PCP Family Medicine; Visit Provider Internal Medicine Critical Care Medicine
DX: J98.4 Other disorders of lung (principal); R91.1 Solitary pulmonary nodule; C34.11 Malignant neoplasm of upper lobe, right bronchus or lung
CPT/HCPCS: 32405; 36415; 71045; 77012; 85049; 85610; 88305

== ENCOUNTER 2020-08-17 16:43 | Outpatient (NON) | payer OTHER, SELFPAY ==
[2020-08-18 13:36] LABS: Influenza Control Positive
== END 2020-08-17 16:44 ==
LOC: ANHCOVIDDT 16:44
PROVIDERS: PCP Family Medicine; Visit Provider Family Medicine
DX: R05 Cough (principal)
CPT/HCPCS: 87804

== ENCOUNTER → 2020-09-01 11:19 | Outpatient (CLI) | payer OTHER, SELFPAY ==
--- NOTE | ~2020-09-01 | XR_ITS ---
EXAMINATION: XR lumbar spine 2-3V DATE: 09/01/2020 11:34 INDICATION: Low back pain TECHNIQUE: Anteroposterior and lateral views of the lumbar spine, and cone-down lateral view of the l umbosacral junction were obtained. COMPARISON: 02/14/2018 FINDINGS: There are 7 mm of stable anterolisthesis of L4 on L5. There are 3 mm of stable anterolisthe sis of L3 on L4. The vertebral body heights are maintained. There is mild loss of intervertebral disc space height throughout the lumbar spine. No fracture is identified. There is severe facet osteoarth ritis of the lower lumbar spine. A 12 mm stone is present in the left kidney lower pole. The bowel ga s pattern is normal. There is advanced right and moderate left hip osteoarthritis. Phleboliths are no maykel in the pelvis. IMPRESSION: 1. Moderate lumbar spondylosis without acute findings or significant interval change. Reviewed, dictated and finalized at location A. GER ENTERPRISE
== END ==
PROVIDERS: PCP Family Medicine; Visit Provider Family Medicine
DX: M47.896 Other spondylosis, lumbar region (principal)
CPT/HCPCS: 72100

== ENCOUNTER 2020-10-07 12:35 | Outpatient (CLI) | payer OTHER, SELFPAY ==
--- NOTE | ~2020-10-07 | XR_ITS ---
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 The procedure including the risks, benefits, and alternatives was discussed with the pat ient. Risks discussed included bleeding and infection. The patient understood the risks and agreed to proceed. The skin overlying the right hip joint was prepped and draped in usual sterile fashion. A nesthetic was administered with 1% lidocaine subcutaneously. A 22 G needle was advanced under fluoro scopic guidance into the joint. Injection of 0.8 mL of Omnipaque 240 confirmed intra-articular posit ion of the needle. Subsequently, injectate consisting of 7 mL of a 5:2 mixture of 1% lidocaine:10 mg /mL Kenalog for a total dosage of 20 mg Kenalog was instilled. Washout of contrast was seen confirmin g intra-articular administration. The needle was removed and the entry site was cleaned and dressed. There were no immediate complications. Fluoroscopy exposure time was 0.1 minutes. The total number o f images was 2. FINDINGS: Real-time fluoroscopy demonstrates the needle in the right hip joint. Patient's pain prior to procedure:5/10. Patient's pain following the procedure: 10/26. IMPRESSION: 1. Right hip injection of local anesthetic and steroid with decrease in the patient's presenting pain . Reviewed, dictated and finalized at location A. [employer] IMPRESSION: 1. Right hip injection of local anesthetic and steroid with decrease in the pat ient's presenting pain.
== END 2020-10-07 12:36 | disposition home or self-care (01) ==
PROVIDERS: PCP Family Medicine; Visit Provider Orthopaedic Surgery
DX: M16.11 Unilateral primary osteoarthritis, right hip (principal)
CPT/HCPCS: 20610; 77002; J3301; Q9966

== ENCOUNTER 2021-07-21 09:56 | Outpatient (CLI) | payer OTHER, SELFPAY ==
--- NOTE | ~2021-07-21 | DEXA_ITS ---
Bone Density Report Name: Patricia Damon Age: 81 Sex: Female Ethnicity: White Date of : 1940 Indication: osteopenia; hyperparathyroidism; height loss; cancer; hysterectomy; postmenopausal Referring Provider: Carmen Suarez Study: Bone densitometry was performed. Exam Date: July 21, 2021 Accession number: [id number] Bone Density: Region BMD T-score Z-score Classification AP Spine (L1-L4) 1.031 -0.1 2.5 Normal Femoral Neck (Left) 0.675 -1.6 0.7 Osteopenia Total Hip (Left) 0.752 -1.6 0.4 Osteopenia World Health Organization criteria for BMD impression classify patients as: Normal (T-score at or above -1.0), Osteopenia (T-score between -1.0 and -2.5), or Osteoporosis (T-score at or below -2.5). 10-year Fracture Risk(1): Major Osteoporotic Fracture 13% Hip Fracture 2.9% Reported Risk Factors: [place] (), Neck BMD=0.675, BMI=30.4 (1) FRAX(R) Version 3.08. Fracture probability calculated for an untreated patient. Fracture probability may be lower if the patient has received treatment. Previous Exams: Region Exam Age BMD T-score BMD Change BMD Change Date g/cm2 vs Baseline vs Previous AP Spine(L1-L4) 07/21/2021 81 1.031 -0.1 -0.044(-4.1%)# -0.008(-0.7%) 02/14/2018 77 1.039 -0.1 -0.036(-3.4%)# -0.036(-3.4%)# 02/26/2004 63 1.075 0.3 Total Hip(Left) 07/21/2021 81 0.752 -1.6 -0.097(-11.5%) -0.041(-5.2%)* 02/14/2018 77 0.793 -1.2 -0.056(-6.6%)# -0.056(-6.6%)# 02/26/2004 63 0.849 -0.8 *Denotes significance at 95% confidence level, LSC for AP Spine = 0.022 g/cm2, LSC for Total Hip = 0.027 g/cm2 Clinical Information Provided by Patient: Has used the following medications: Vitamin D Has the following medical conditions: Cancer, Hyperparathyroidism, Hysterectomy Patient maximum height was 70 Menopause Age: 52 Drinks caffeinated beverages Onset of menses at age 16 Number of children 2 Impression: The patient has low bone mass, based on the Left Total Hip T-score. The patient has an estimated ten-year risk of hip fracture of 2.9% and an estimated ten-year risk of major fracture of 13%, based on the WHO FRAX algorithm. The BMD for the Total Hip(Left) decreased, changing by -5.2% since the last DXA exam. Discussion: BONE DENSITY IS LOW AT ONE OR MORE SKELETAL SITES. This patient's lowest T-score is low at one or more skeletal sites. It meets the World Health Organization's (WHO) criteria for ?low bone mass? (T-score between -1.0 and -2.5). The patient's 10-year risk of fracture
--- NOTE | ~2021-07-21 | US_ITS ---
EXAMINATION: US thyroid DATE: 07/21/2021 10:51 INDICATION: Thyroid nodule. Hyperparathyroidism. TECHNIQUE: Multiple ultrasound images of the thyroid were obtained. COMPARISON: Ultrasound 02/14/2018 FINDINGS: The right thyroid lobe measures 4.2 x 1.3 x 1.5 cm. The left thyroid lobe measures 3.4 x 1.0 x 1.3 c m. In the right thyroid lobe, there is a 4 mm solid, hypoechoic, ehwrb-[id number]-[id number] nodule with smooth margin without echogenic foci (TI-RADS TR4). In the right thyroid lobe, there is a 2 mm nodule. In th e left thyroid lobe, there is a 10 mm solid, hypoechoic, rgvmp-[id number]-tgzl nodule with ill-defined cori in without echogenic foci (TR4), increased from 7 mm on 02/14/18. IMPRESSION: 1. Thyroid nodules. Thyroid ultrasound is recommended in one year. Reviewed, dictated and finalized at location A. INGIZER
== END 2021-07-21 09:57 | disposition home or self-care (01) ==
LOC: ANHIMG 09:57
PROVIDERS: PCP Family Medicine; Visit Provider Internal Medicine Endocrinology, Diabetes & Metabolism
DX: E21.3 Hyperparathyroidism, unspecified (principal); E04.2 Nontoxic multinodular goiter; M85.852 Other specified disorders of bone density and structure, left thigh
CPT/HCPCS: 76536; 77080

== ENCOUNTER 2021-12-18 10:30 | Outpatient (RCR) | payer OTHER, SELFPAY ==
[2021-12-05 08:02] VITALS: BMI 29.2
[2021-12-05 08:15] VITALS: BMI 29.2
== END 2022-02-20 09:59 | disposition home or self-care (01) ==
LOC: ANHDMC 10:30
PROVIDERS: PCP Family Medicine; Visit Provider Nurse Practitioner Family
DX: E11.9 Type 2 diabetes mellitus without complications (principal); Z71.3 Dietary counseling and surveillance; Z71.89 Other specified counseling
CPT/HCPCS: 97802; G0108

== ENCOUNTER 2021-12-19 10:27 | Outpatient (CLI) | payer OTHER, SELFPAY ==
--- NOTE | ~2021-12-19 | XR_ITS ---
EXAMINATION: XR abdomen/kub 1V INDICATION: Left flank pain, hematuria TECHNIQUE: Supine views of the abdomen were obtained on 2 radiographs. COMPARISON: 09/01/2020 FINDINGS: A 2.5 cm stone projects in the lower pole of the left kidney. No additional urolithiasis is identified. There are phleboliths of the pelvis. Changes of right total hip arthroplasty are noted. There is moderate osteoarthritis of the left hip. The lung bases are clear. The bowel gas pattern is normal. IMPRESSION: 1. Left nephrolithiasis. Reviewed, dictated and finalized at location A. IMPRESSION: 1. Left nephrolithiasis.
== END 2021-12-19 10:28 | disposition home or self-care (01) ==
PROVIDERS: PCP Family Medicine; Visit Provider Urology
DX: R10.9 Unspecified abdominal pain (principal); R31.9 Hematuria, unspecified; N20.0 Calculus of kidney
CPT/HCPCS: 74018

== ENCOUNTER → 2022-05-08 10:29 | Outpatient (CLI) | payer OTHER, SELFPAY ==
--- NOTE | ~2022-05-08 | XR_ITS ---
XR abdomen/kub 1V 05/08/2022 10:41 INDICATION: Left renal stone TECHNIQUE: KUB COMPARISON: 12/19/2021 FINDINGS: Bowel gas pattern is normal. There is no evidence of free air, mass, organomegaly, ascites or obstruction. No abnormal calculi are seen. The bones appear intact. There is a right total hip arthroplasty. IMPRESSION: 1: No acute abdominal abnormality identified. Reviewed, dictated and finalized at location A.
--- NOTE | ~2022-05-08 | US_ITS ---
US renal BI 05/08/2022 10:52 Procedure: Realtime transabdominal ultrasound of the kidneys and bladder. Indication: Renal stones. Comparison: KUB dated 05/08/2022 Findings: Renal echotexture is normal bilaterally without hydronephrosis, contour deforming mass or r enal calculus. The right kidney measures 11.5 cm and left kidney measures 12.2 cm. Bladder within no rmal limits. Impression: 1: Unremarkable renal ultrasound. No stones, masses or hydronephrosis. Reviewed, dictated and finalized at location A. Impression: 1: Unremarkable renal ultrasound. No stones, masses or hydronephrosis.
== END ==
PROVIDERS: PCP Family Medicine; Visit Provider Urology
DX: N20.0 Calculus of kidney (principal)
CPT/HCPCS: 74018; 76775

== ENCOUNTER → 2022-11-20 13:28 | Outpatient (CLI) | payer OTHER, SELFPAY ==
--- NOTE | ~2022-11-20 | XR_ITS ---
EXAMINATION: XR abdomen/kub 1V DATE: 11/20/2022 13:40 INDICATION: Kidney stone left side. TECHNIQUE: A supine view of the abdomen on 2 radiographs was obtained. COMPARISON: Abdomen radiographs 05/08/2022, PET/CT 09/15/2019 FINDINGS: There are no dilated loops of bowel. There are phleboliths in the pelvis. There is a total right hip arthroplasty in near-anatomic alignment. IMPRESSION: 1. No visible urolithiasis. Reviewed, dictated and finalized at location A. IMPRESSION: 1. No visible urolithiasis.
== END ==
PROVIDERS: PCP Family Medicine; Visit Provider Urology
DX: N20.0 Calculus of kidney (principal)
CPT/HCPCS: 74018

== ENCOUNTER → 2023-04-29 15:54 | Outpatient (CLI) | payer OTHER, SELFPAY ==
--- NOTE | ~2023-04-29 | XR_ITS ---
XR abdomen/kub 1V 04/29/2023 16:09 Indication: Left renal stone Procedure: KUB Comparison: 11/20/2022 Findings: Bowel gas pattern nonobstructive with moderate colonic fecal loading. There are pelvic phle boliths. No definite renal stones are visualized. Moderate lumbar spondylosis. There is a right total hip arthroplasty. Impression: 1: No nephrolithiasis identified. Kidneys somewhat obscured by bowel content. Reviewed, dictated and finalized at location B. Impression: 1: No nephrolithiasis identified. Kidneys somewhat obscured by bowel content.
== END ==
PROVIDERS: PCP Urology; Visit Provider Urology
DX: N20.0 Calculus of kidney (principal)
CPT/HCPCS: 74018

== ENCOUNTER → 2023-04-30 16:02 | Outpatient (CLI) | payer OTHER, SELFPAY ==
--- NOTE | ~2023-04-30 | US_ITS ---
US retroperitoneal comp 04/30/2023 16:18 Procedure: Realtime transabdominal ultrasound of the kidneys and bladder. Indication: Kidney stones Comparison: 05/08/2022 Findings: Renal echotexture is normal bilaterally without hydronephrosis, contour deforming mass or r enal calculus. There is a right renal cyst measuring 1.6 cm. The right kidney measures 11.9 cm and le ft kidney measures 13 cm. Bladder within normal limits. Impression: 1: Right renal cyst measuring 1.6 cm. Reviewed, dictated and finalized at location L. Impression: 1: Right renal cyst measuring 1.6 cm.
== END ==
PROVIDERS: PCP Urology; Visit Provider Urology
DX: N28.1 Cyst of kidney, acquired (principal)
CPT/HCPCS: 76770

== ENCOUNTER 2024-03-12 10:46 | Outpatient (RCR) | payer OTHER, SELFPAY ==
[2024-03-12 10:50] VITALS: BMI 30.4
== END 2024-06-08 10:13 | disposition home or self-care (01) ==
LOC: ANHDMC 10:46
PROVIDERS: PCP Nurse Practitioner Family; Visit Provider Internal Medicine Endocrinology, Diabetes & Metabolism
DX: E11.9 Type 2 diabetes mellitus without complications (principal); Z71.3 Dietary counseling and surveillance
CPT/HCPCS: 97802

== ENCOUNTER 2024-04-13 10:30 | Outpatient (CLI) | payer OTHER, SELFPAY ==
--- NOTE | ~2024-04-13 | NM_ITS ---
EXAMINATION: NM parathyroid w imaging DATE: 04/13/2024 14:16 INDICATION: Parathyroid adenoma. TECHNIQUE: Tc99m sestamibi was administered intravenously. Anterior images of the neck were obtained immediately and at 2 hours. SPECT images of the neck were obtained. COMPARISON: None. FINDINGS: There is focal persistent increased activity in the area of inferior thyroid lobe. IMPRESSION: 1. Focal persistent increased activity in the area of inferior right thyroid lobe, consistent with a parathyroid adenoma. Reviewed, dictated and finalized at location A. IMPRESSION: 1. Focal persistent increased activity in the area of inferior right thyroid lo be, consistent with a parathyroid adenoma.
== END 2024-04-13 10:31 | disposition home or self-care (01) ==
PROVIDERS: PCP Family Medicine; Visit Provider Internal Medicine Endocrinology, Diabetes & Metabolism
DX: E21.3 Hyperparathyroidism, unspecified (principal)
CPT/HCPCS: 78070; A9500

== ENCOUNTER 2024-04-28 08:21 | Outpatient (CLI) | payer OTHER, SELFPAY ==
[2024-04-28 10:07] LABS: Creatinine Urine 60.7 mg/dL
[2024-04-28 10:12] LABS: Creatinine 24 Hour Urine 1.2 gm/24 (0.8-1.8); Total Volume 24 Hour Urine 2000 ml
[2024-05-01 11:02] LABS: Total Volume 2000 mL
== END 2024-04-28 08:22 | disposition home or self-care (01) ==
PROVIDERS: PCP Nurse Practitioner Family; Visit Provider Internal Medicine Endocrinology, Diabetes & Metabolism
DX: N20.0 Calculus of kidney (principal); E04.1 Nontoxic single thyroid nodule; E83.52 Hypercalcemia
CPT/HCPCS: 81050; 82340; 82570

== ENCOUNTER 2024-06-03 08:57 | Outpatient (CLI) | payer OTHER, SELFPAY ==
--- NOTE | ~2024-06-03 | MMUS_ITS ---
EXAMINATION: MM diagnostic stefanie BI w lindsay, US breast BI complete HISTORY: Palpable left axillary lump TECHNIQUE: Additional 3-D tomosynthesis images of the breasts were performed and synthetic 2-D images were generated. CAD analysis was submitted and interpreted. High resolution bilateral complete breas t ultrasound was performed. COMPARISON: Comparison to multiple prior studies sequentially, with oldest reviewed study dated 04/2017. BREAST PARENCHYMAL COMPOSITION: Not dense: There are scattered areas of fibroglandular density. FINDINGS: MAMMOGRAPHIC FINDINGS: The breasts are stable. Bilateral breast asymmetries are unchanged from prior study. No new masses, c alcifications or architectural distortion in either breast to suggest malignancy. ULTRASOUND: Complete US of all 4 quadrants of the breast/s and retroareolar region was reviewed. Right breast: Normal heterogeneous echotexture without focal solid or cystic mass. Left breast/axilla: In the left axilla there is a normal appearing 12 mm lymph node without cortical thickening. At 12:00 there is a 7 mm cyst. No suspicious masses to suggest malignancy. IMPRESSION: 1. No evidence for malignancy in either breast. 2. Routine yearly screening mammogram and regular clinical breast examination are recommended. BI-RADS Category 2: Benign finding(s). Reviewed, dictated and finalized at location B. IMPRESSION: 1. No evidence for malignancy in either breast. 2. Routine yearly screening mammogram and regular clinical breast examination a re recommended. BI-RADS Category 2: Benign finding(s).
== END 2024-06-03 08:58 | disposition home or self-care (01) ==
PROVIDERS: PCP Family Medicine; Visit Provider Nurse Practitioner Family
DX: N63.20 Unspecified lump in the left breast, unspecified quadrant (principal); R92.8 Other abnormal and inconclusive findings on diagnostic imaging of breast
CPT/HCPCS: 76641; 77062; 77066; G0279

== ENCOUNTER 2024-07-21 15:04 | Outpatient (CLI) | payer OTHER, SELFPAY ==
--- NOTE | ~2024-07-21 | DEXA_ITS ---
Bone Density Report Name: CHAPARRO COVINGTON Age: 84 Sex: Female Ethnicity: White Date of : 1940 Indication: postmenopausal; screening for osteoporosis; height loss; cancer; hysterectomy; Referring Provider: JOSUE HERNANDEZ Study: Bone densitometry was performed. Exam Date: July 21, 2024 Accession number: [id number] Bone Density: Region BMD T-score Z-score Classification AP Spine(L2, L3, L4) 1.116 0.3 3.2 Normal Femoral Neck (Left) 0.703 -1.3 1.1 Osteopenia Total Hip (Left) 0.774 -1.4 0.8 Osteopenia World Health Organization criteria for BMD impression classify patients as: Normal (T-score at or above -1.0), Osteopenia (T-score between -1.0 and -2.5), or Osteoporosis (T-score at or below -2.5). 10-year Fracture Risk(1): Major Osteoporotic Fracture 12% Hip Fracture 2.9% Reported Risk Factors: [place] (), Neck BMD=0.703, BMI=30.3 (1) FRAX(R) Version 3.08. Fracture probability calculated for an untreated patient. Fracture probability may be lower if the patient has received treatment. Clinical Information Provided by Patient: Has used the following medications: Vitamin D Has the following medical conditions: Cancer, Hysterectomy Patient maximum height was 70 Menopause Age: 52 Drinks caffeinated beverages Onset of menses at age 16 Number of children 2 Impression: The patient has low bone mass, based on the Left Total Hip T-score. The patient has an estimated ten-year risk of hip fracture of 2.9% and an estimated ten-year risk of major fracture of 12%, based on the WHO FRAX algorithm. Discussion: BONE DENSITY IS LOW AT ONE OR MORE SKELETAL SITES. This patient's lowest T-score is low at one or more skeletal sites. It meets the World Health Organization's (WHO) criteria for ?low bone mass? (T-score between -1.0 and -2.5). The patient's 10-year risk of fracture as calculated by FRAX is less than the threshold where pharmacological therapy is recommended by the National Osteoporosis Foundation (NOF). However, all treatment decisions require clinical judgment and consideration of individual patient factors, including patient preferences, comorbidities, previous drug use, risk factors not captured in the FRAX model (e.g., frailty, falls, vitamin D deficiency, increased bone turnover, interval significant decline in bone density) and possible under or overestimation of fracture risk by FRAX. The patient should follow a healthful lifestyle (good nutrition with adequate calcium and vitamin D, and appropriate weight-bearing exercise). Follow-Up: Consider repeating this study in 2 to 3 years to reassess this patient's status, or sooner if there is some new clinical indication. Reported by: EVELIN on 07/22/2024 7:43:00 AM. Reviewed, dictated and finalized at location A. JEFFREY
== END 2024-07-21 15:05 | disposition home or self-care (01) ==
PROVIDERS: PCP Nurse Practitioner Family; Visit Provider Internal Medicine Endocrinology, Diabetes & Metabolism
DX: E04.1 Nontoxic single thyroid nodule (principal); N20.0 Calculus of kidney; E21.3 Hyperparathyroidism, unspecified; M85.852 Other specified disorders of bone density and structure, left thigh
CPT/HCPCS: 77080

== ENCOUNTER 2024-10-22 12:30 | Outpatient (CLI) | payer OTHER, SELFPAY ==
--- NOTE | ~2024-10-22 | US_ITS ---
EXAMINATION: US venous doppler [facility] DATE: 10/22/2024 13:14 INDICATION: Left lower limb edema. TECHNIQUE: Grayscale ultrasound images without and with compression and Doppler ultrasound images of the left lower extremity veins were obtained. COMPARISON: None. FINDINGS: The visualized portions of left common femoral vein, profunda (deep) femoral vein, femoral vein, popl iteal vein, peroneal veins, posterior tibial veins, and greater saphenous vein outflow are patent. Th ere is a small Da Silva's cyst. IMPRESSION: 1. No deep venous thrombosis. Reviewed, dictated and finalized at location A. M SEPARATOR OPERATOR
--- OUTSIDE RECORDS SUMMARY | 2024-10-22 13:43 | XMS_ITS | Continuity of Care Document ---
Author Organization [facility] Address [address] [place] [address] Phone Care Team Providers Care Wafer Cleaner Name Role Phone Destin Escamilla Unavailable Unavailable Procedures Procedure Date Post-op Follow-up Visit Remove Cataract, Insert Lens,Comanaged N PreOp Assessment Performed No Charge Cataract Check Office/outpatient Visit, Est [facility]-Professional Post-op Follow-up Visit Post-op Follow-up Visit Remove Cataract, Insert Lens,Comanaged A PreOp Assessment Performed Office Consultation IOLMaster Dilated Macular Exam Performed 09 Counseling For Antioxidant Supplements F Script Printed/Phoned Pt Requ Or Pharm N ot Availab Advance Directives Directive Yes / No Effective Date File Name No Information Encounters Encounter Description Practice Location Reason(s) For Visit Diagnoses Date Provider Providers Copied on Encounter [facility], [address] [place] [address] [address], [place], [place], [id number], [place] tel:[phone] [facility] No Information 0 Andi Weir. [address] , [address], [place], [address], [place]. tel:[phone] [facility], [address] [place] [address] [address], [place], [place], [id number], [place] tel:[phone] [facility] No Information 3-201 0 Doisy Edward. [address] , [address], [place], [place], [facility], . tel:[phone] Referring Provider: Chantal Russell OD, [address] [place] [address], [facility]. tel:[phone] [facility], [address] [place] [address] [address], [place], [place], [id number], tel:[phone] [facility] No Information 6-201 0 Doisy Edward. [address] , [address], [place], [place], [facility], . tel:[phone] Referring Provider: Chatnal Russell OD, [address] [place] [address], [facility]. tel:[phone] Office/outpati ent Visit, [facility], [address] [place] [address] [address], [place], [place], [id number], tel:[phone] [facility] No Information 3-201 0 Doisy Edmaris. [address], [address], [place], [place], [facility], . tel:[phone] Referring Provider: Chantal Russell OD, [address] [place] [address], [facility]. tel:[phone] [facility], [address] [place] [address] [address], [place], [place], [id number], [place] tel:[phone] [facility] No Information Nov-2 3-200 9 Doisy Ed[place]. [address] , [address], [place], [place], [facility], . tel:[phone] [facility], [address] [place] [address] [address], [place], [place], [id number], tel:[phone] [facility] No Information [facility]. [address] , [address], [place], [facility], . tel:[phone] [facility], [address] [place] [address], [place], [id number], tel:[phone] [facility] No Information [facility] [place]. [address] , [address], [place], [place], [facility], . tel:[phone] Referring Provider: Chantal Russell OD, [address] [place] [address], [address]. tel:[phone] Office Consultation [facility], [address] [place] [address], [place], [place], [id number], tel:[phone] [facility] No Information [facility] [place]. [facility] [facility] [address] , [address], [place], [place], [facility], [place]. tel:[phone] Referring Provider: Chantal Russell OD, [address] [place] [address], [address]. tel:[phone] Family History Family Member Type Diagnosis Age At Onset No Information Payers Payer name Insurance type Covered alliance party ID Authoriza tion(s) No Information Social History Type Description Quantity Date Captured Comments Sex Female Smoking Status No Information Chief Complaint And Reason For Visit No Information Reason For Referral Reason For Referral No Information History Of Present Illness Encounter Date Complaint History Of Prese nt Illness No Information Functional Status Date Functional Assessmen t No Information Instructions Date Instruction Additional Infor mation No Information Assessments Type Assessment Date No Information Patient Care Teams Name Effective Dates (start - stop) Status Members No Information
--- OUTSIDE RECORDS SUMMARY | 2024-10-22 13:43 | XMS_ITS | Encounter Summary ---
Author Organization [facility] Healthcare Address [address] [place] [address] Care Team Providers Care Flat Finisher Name Role Phone Miriam Rose Marie MontezFlavia TRINH Primary Care Provider + Camilo Lobato MD Unavailable + [phone] Rancho Howell MD Primary Care Provider +[phone] Encounter Details Date Type Department Care Team (Late st Contact Info) Description 02/12/2020 Telephone [facility] [address] [place] [address] Sary Kc, RT Social History Tobacco Use Types Packs/Day Years Used Date Smoking Tobacco: Never Smokeless Tobacco: Never Alcohol Use Standard Drinks/Week Comments Yes 0 (1 standard drink = 0.6 oz pur e alcohol) socially Comments Unknown Sex and Gender Information Value Date Recorded Sex Assigned at Not on file 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 Gender Identity Female 04/27/2021 10:03 AM CDT Sexual Orientation Not on file documented as of this encounter Plan of Treatment Upcoming Encounters Date Type Department Care Team (Latest Contact Info) Description 10/27/2024 7:30 AM CDT Hospital Encounter [facility] Operating [facility]) [address] [place] [address] Rosa Bateman MD [address] [place] [address] 10/27/2024 7:30 AM CDT Anesthesia Event [facility] Operating [facility]) [address] [place] [address] Samantha Moscoso NP [address] [facility] [id number] [place] [address] 10/27/2024 7:30 AM CDT - 10/27/2024 9:40 AM CDT Surgery [facility] Operating [facility]) [address] [place] [address] Rosa Bateman MD [address] [place] [address] PARATHYROIDECTOMY Scheduled Procedures Name Priority Associated Diagnoses Date/Ti me PARATHYROIDECTOMY Hyperparathyroidism 10/27/2024 7:30 AM CDT documented as of this encounter Visit Diagnoses Not on filedocumented in this encounter Care Teams Flat Finisher Relationship Specialty Start Date End Date Rose Marie Pineda DO [address] [place] [address] PCP - General Family Medicine 12/07/19 06/17/23 Rancho Howell MD [address] [place] [address] PCP - General Family Medicine 06/18/23 [place] [address] [place] [address] Consulting Physician Urology 03/14/22 documented as of this encounter
--- OUTSIDE RECORDS SUMMARY | 2024-10-22 13:43 | XMS_ITS | Clinical Summary ---
Author Organization [facility] [address] Address [address] [place] [address] Care Team Providers Care Chocolate Temperer Name Role Phone Camilo Lobato MD Unavailable +1- [phone] Rancho Howell MD Primary Care Provider +1 -[phone] Allergies Active Allergy Reactions Criticality Noted Date Comments Celecoxib Stomach upset Low 03/13/2021 GI Upset Medications atorvastatin (LIPITOR) 40 mg tabletIndication s:hyperlipidemia Take 1 tablet (40 mg total) by mouth nightly 10/03/19 22 Active losartan (COZAAR) 25 mg tabletIndication s:hypertension Take 1 tablet (25 mg total) by mouth nightly 10/24/19 22 Active Microlet Lancet misc USE TO TEST EVERY DAY 08/17/20 21 Active Contour Next One Meter misc USE TO TEST EVERY DAY 08/17/20 21 Active Contour Next Test Strips strip USE TO TEST EVERY DAY 08/17/20 21 Active amoxicillin (AMOXIL) 500 mg tablet/capsuleIn dications:Status post total replacement of right hip Take 4 tablets 1 hour prior to dental procedure or cleaning 4 tablet/capsu le 2 12/15/19 22 Active Additional Information Patient taking differently: 2,000 mg oral See admin instructions, Take 4 tablets 1 hour prior to dental procedure or cleaning; last dose 07/2024, Indications: Prophylaxis, Medical, Informant: Self, Reported on 10/19/2024 famotidine (PEPCID) 10 mg tabletIndication s:Heartburn,Hear tburn Prevention Take 1 tablet (10 mg total) by mouth 2 (two) times a day as needed for heartburn or indigestion Active coenzyme Q10 200 mg capsuleIndicatio ns:supplement Take 1 capsule (200 mg total) by mouth every morning Active cholecalciferol (VITAMIN D-3) 2000 unit capsuleIndicatio ns:Vitamin D Deficiency Take 1 capsule (2,000 Units total) by mouth every morning Active acetaminophen (TYLENOL) 500 mg tabletIndication s:Pain Take 2 tablets (1,000 mg total) by mouth every 6 (six) hours as needed for pain Active Jardiance 25 mg tabletIndication s:type 2 diabetes mellitus Take 1 tablet (25 mg total) by mouth every morning 02/01/20 23 Active betamethasone dipropionate (DEL-BETA) 0.05 % creamIndications :Skin Inflammation,ski n rash Apply 1 Application topically daily as needed for irritation or rash 08/25/19 25 Active Tradjenta 5 mg tablet Take 1 tablet (5 mg total) by mouth every morning 08/31/19 25 Active glucosamine/maribel dr hattie fraser (OSTEO BI-FLEX ORAL)Indications :supplement Take 1 capsule by mouth every morning Active turmeric root extract 500 mg capsuleIndicatio ns:supplement Take 1 tablet/capsule by mouth every morning Active aspirin 81 mg enteric coated tabletIndication s:edema left foot Take 1 tablet (81 mg total) by mouth every morning Active ibuprofen (ADVIL,MOTRIN) 400 mg tabletIndication s:Anti-inflammat ory Take 1 tablet (400 mg total) by mouth every 6 (six) hours as needed (edema left foot) Active metFORMIN XR (GLUCOPHAGE XR) 500 mg 24 hr tablet Take 500 mg by mouth 2 (two) times a day 10/24/19 22 025 Discontin ued(Thera py completed ) glucosam-chondro itin-diet cb25 116-100 mg capsule Take 1 capsule by mouth daily 025 Discontin ued(Thera py completed ) polyethylene glycol (MIRALAX) 17 gram packetIndication s:constipation Take 1 packet (17 g total) by mouth daily for 7 days 7 packet 03/14/20 22 025 Discontin ued(Thera py completed ) oxybutynin XL (DITROPAN-XL) 10 mg 24 hr tablet Take 1 tablet (10 mg total) by mouth daily 30 tablet 03/14/20 22 025 Discontin ued(Thera py completed ) empagliflozin (JARDIANCE ORAL)Indications :t2dm Take by mouth every morning 025 Discontin ued(Dupli chely order) penicillin v potassium (VEETID) 500 mg tablet 02/01/20 23 025 Discontin ued(Thera py completed ) diazePAM (VALIUM) 5 mg tablet Take 1 tablet 1 hour prior to MRI. If needed patient may take second tab immediately prior to scan. CARD FEEDER REQUIRED FOR MRI! 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 Hip pain 11/11/2020 Hyperlipidemia 11/11/2020 Impacted cerumen 11/11/2020 Macular degeneration 11/11/2020 Neck pain 11/11/2020 Pain of left lower extremity 11/11/2020 Posterior rhinorrhea 11/11/2020 Primary localized osteoarthritis of pelvic regio n and thigh 11/11/2020 Shoulder pain 11/11/2020 Thyroid nodule 11/11/2020 Thyroiditis 11/11/2020 Upper respiratory infection 11/11/2020 Vitamin D deficiency 11/11/2020 Brain lesion 11/04/2020 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 Repeat CXR and if expanded will DC chest tube - pain management: sched Tylenol, PRN oxycodone - DVT prophylaxis: every day Lovenox, SCDs will in bed and chair, early ambulation - Anticipated DC date 02/19 Adenocarcinoma of right lung 02/05/2020 Pulmonary nodule 02/04/2020 Resolved Problems Problem Noted Date Diagnosed Date Resolved Date Pulmonary nodule 02/04/2020 11/04/2020 Immunizations Immunization Administration Dates Next Due Influenza, Quad, Adjuvantate d, Intramuscular 06/26/2021 Influenza, Quadrivalent, Hig h Dose, Preservative Free, Intrr 05/27/2020 Influenza, Trivalent, Adjuva nted, Intramuscular 05/31/2017 Influenza, Trivalent, High D ose, Split, Preservative Free, Intramuscular 04/23/2016 Influenza, Trivalent, IM (MDV) 06/02/2014 Pfizer SARS-CoV-2 Monovalent Vaccination (12+ Yrs) PURPLE 09/28/2020,09/07/2020 Pneumococcal Conjugate PCV 13 01/31/2016 Pneumococcal Polysaccharide PPV23 12/22/2018, Tdap 12/22/2018 ZOSTER LIVE 03/03/2019,12/22/2018,10/01/2007 ZOSTER Recombinant 03/03/2019,12/22/2018 Surgical History Surgery Date Site/Laterality Comments PARTIAL HYSTERECTOMY 08/19/1974 - 08/18/1975 TONSILLECTOMY 08/19/1947 - 08/18/1948 ACHILLES TENDON REPAIR 08/19/1966 - 08/18/1967 Left REPLACEMENT TOTAL KNEE BILATERAL 08/19/2008 - 08/18/2009 CATARACT EXTRACTION 08/19/2019 - 08/18/2020 Bilateral TUBAL LIGATION 08/19/1972 - 08/18/1973 LOBECTOMY 02/18/2020 Right Right upper lobectomy TOTAL HIP ARTHROPLASTY 03/15/2021 Right NEPHROURETERAL STENT PLACEMENT NEW ACCESS LEFT 03/13/2022 Left URETERAL STENT PLACEMENT VIA EXISTING TRACT LEFT 03/14/2022 Left Medical History Medical History Date Comments TIA (transient ischemic attack) Hyperlipidemia Cancer (HCC) skin Thyroid nodule Jimmy's thyroiditis Vitamin D deficiency Dehydration Macular degeneration Impacted cerumen Sinusitis Posterior rhinorrhea Primary localized osteoarthritis of pelvic regio n and thigh Shoulder pain Neck pain Hip pain Chronic lower limb pain Hyperparathyroidism Kidney stone History of stroke 2019 brain bleed pe r pt Family History Medical History Relation Name Comments Diabetes Brother 1 Heart disease Brother 1 Leukemia Brother 2 Lung cancer Father Heart disease Mother Malig Hyperthermia Neg Hx Pseudochol deficiency Neg Hx Relation Name Status Comments Brother 1 (Age 60) Brother 2 (Age 78) Father (Age 69) Mother (Age 48) Social History Tobacco Use Types Packs/Day Years Used Date Smoking Tobacco: Never Smokeless Tobacco: Never Tobacco Cessation:Counseling Given: Not Answered Alcohol Use Standard Drinks/Week Comments Yes 0 (1 standard drink = 0.6 oz pur e alcohol) socially AUDIT-C Answer Date Recorded Q1: How often do you have a drink containing alc ohol? 2-4 times a month 10/19/2024 Q2: How many drinks containi ng alcohol do you have on a typical day when you are drinking? 1 or 2 10/19/2024 Q3: How often do you have si x or more drinks on one occasion? Never 10/19/2024 Comments No Sex and Gender Information Value Date Recorded Sex Assigned at Not on file Legal Sex Female 1:20 AM STUMPER FELLER Gender Identity Female 04/27/2021 10:03 AM CDT Sexual Orientation Not on file Obstetrics History Last Filed Vital Signs Vital Sign Reading Time Taken Comments Blood Pressure 153/78 05/21/2024 10:08 AM CDT Pulse 72 05/21/2024 10:08 AM CDT Temperature 36.6 C (97.8 F) 04/24/2024 9:13 AM CDT Respiratory Rate 18 04/24/2024 9:13 AM CDT Oxygen Saturation 96% 05/21/2024 10:08 AM CDT Inhaled Oxygen Concentration - - Weight 90.7 kg (200 lb) 10/19/2024 10:55 AM STUMPER FELLER Height 174 cm (5' 8.5 ) 10/19/2024 10:55 AM STUMPER FELLER Body Mass Index 29.97 10/19/2024 10:55 AM STUMPER FELLER Plan of Treatment Upcoming Encounters Date Type Department Care Team (Latest Contact Info) Description 10/27/2024 7:30 AM CDT Hospital Encounter [facility] Operating Room [facility]) [address] [place] [address] Rosa Bateman MD [address] [place] [address] 10/27/2024 7:30 AM CDT Anesthesia Event [facility] Operating [facility]) [address] [address] [place] [address] [place] [address] [phone] [place], [place] [address] 10/27/2024 7:30 AM CDT - 10/27/2024 9:40 AM CDT Surgery [facility] Operating [facility]) [address] [place] [address] Rosa Bateman MD [address] [place] [address] PARATHYROIDECTOMY Scheduled Procedures Name Priority Associated Diagnoses Date/Ti me PARATHYROIDECTOMY Hyperparathyroidism 10/27/2024 7:30 AM CDT Health Maintenance Due Date Last Done Comments Depression Screening 1940 Osteoporosis Screening-Bone Density Scan 1942 Hepatitis B Screening 1960 Well Visit 65+ 2007 Fall Risk Assessment 03/14/2023 03/14/2022 Covid-19 Vaccine (2023-2 5 season) 2024 11/16/2021, 05/21/2021, 09/28/2020, Additional history exists Influenza Vaccine (#1) 2024 , 05/27/2020, 05/31/2017, Additional history exists DTaP/Tdap/Td Vaccine (2 - Td or Tdap) 12/22/2028 12/22/2018 Pneumococcal vaccine 65+ Completed 019, 01/31/2016, 10/01/2007 Zoster Vaccine Completed 03/03/2019, 02/16, 12/22/2018, Additional history exists Medical Devices Implanted Type Area Charter Pilot Device Identifier Shelf Expiration Date Model / Serial / Lot [employer] [id number] Continuum 52mm 12 Scallop Cluster Hole Snap Fit Groove Integrate - S0 - [id number] Implanted:Qty: 1 on 03/15/2021 by You Rice MD at [facility] Other - see comments Right: Hip [employer] [id number] 11/06/2030 [id number] / 0 / [id number] [employer] [id number] 52mm 36mm Hip Ii Neutral Liner Acetabular Longevity Continuum - S0 - [id number] Implanted:Qty: 1 on 03/15/2021 by You Rice MD at [facility] Other - see comments Right: Hip [employer] [id number] 10/19/2025 [id number] / 0 / [id number] [employer] [id number] Taperloc 152mm Type 1 Press Fit Reduce Hip 133d 16 Standard - S0 - [id number] Implanted:Qty: 1 on 03/15/2021 by You Rice MD at [facility] Other - see comments Right: Hip [employer] [id number] 10/12/2029 [id number] / 0 / [id number] [employer] 650-0660 G7 36mm Type 1 Modular Hip Acetabular -3mm Offset Head Femoral - S0 - [id number] Implanted:Qty: 1 on 03/15/2021 by You Rice MD at [facility] Other - see comments Right: Hip [employer] [id number] 06/20/2030 650-0660 / 0 / [id number] [employer] [id number] Trilogy 6.5mm 35mm Self Tap Screw Bone - S0 - [id number] Implanted:Qty: 1 on 03/15/2021 by You Rice MD at [facility] Screw Right: Hip [employer] [id number] 12/01/2030 [id number] / 0 / [id number] Bilateral Total Knee Arthroplasties Knee [employer] Contour 7fr 28cm Large Inner Lumen Low Profile Bladder Odell Taper Latex Free 180-234 - [id number] Implanted:Qty: 1 on 03/14/2022 at [facility] [employer] 08/06/2024 180-234 / / [id number] Explanted Type Area Charter Pilot Device Identifier Shelf Expiration Date Model / Serial / Lot [employer] Minister[employer] Contour 8fr 26cm Large Inner Lumen Low Profile Bladder Odell Taper Latex Free 180-603 - [id number] Explanted:Qty: 1 on 03/14/2022 at [facility] [employer] 08/20/2024 180-243 / / [id number] Insurance [facility]ALTH[facility]ARE [facility] Advance Directives For more information, please contact: [phone] Documents on File Type Date Recorded Patient Administrative Support Associate Expl anation ADVANCE DIRECTIVE 02/17/2020 1:59 PM Power of Motorcycle Service Technician-Medical * Full Code (Latest Code Status on File) Date Activated Date Inactivated Comments 03/13/2022 8:27 AM 03/14/2022 4:49 AM * Full Code Date Activated Date Inactivated Comments 03/15/2021 5:06 PM 03/16/2021 4:32 PM * Full Code Date Activated Date Inactivated Comments 02/18/2020 2:21 PM 02/21/2020 2:34 PM Care Teams Chocolate Temperer Relationship Specialty Start Date End Date Rancho Howell MD [facility] [place] [address] PCP - General Family Medicine 06/18/23 [place] [address] [place] [address] Consulting Physician Urology 03/14/22
--- OUTSIDE RECORDS SUMMARY | 2024-10-22 13:43 | XMS_ITS ---
Author Organization [facility] [address] Address [address] [place] [address] Care Team Providers Care Windows Application Administrator Name Role Phone Camilo Lobato MD Unavailable +1- [phone] Rancho Howell MD Primary Care Provider +1 -[phone] Active Problems Problem Noted Date Diagnosed Date Hyperparathyroidism 09/23/2024 Hypercalcemia 05/21/2024 Kidney stone on left side 01/19/2022 Overview (01/19/2022): Added automatically from request for surgery [id number] Primary osteoarthritis of right hip 03/10/2021 Overview (03/10/2021): Added automatically from request for surgery [id number] Acute sinusitis 11/11/2020 Dehydration 11/11/2020 Jimmy's thyroiditis [...] (02/05/2020): Added automatically from request for surgery [id number] Assessment & Plan (02/19/2020 7:14 AM CDT): S/p video-assisted right upper lobectomy - right chest tube to -20 suction. Repeat CXR and if expanded will DC chest tube - pain management: sched Tylenol, PRN oxycodone - DVT prophylaxis: every day Lovenox, SCDs will in bed and chair, early ambulation - Anticipated DC date 02/19 Adenocarcinoma of right lung 02/05/2020 Pulmonary nodule 02/04/2020 Current Treatment and Therapy Plans No current plan information found. Past Treatment and Therapy Plans No past plan information found. Lifetime Dose Tracking * Chemical Lifetime Dose Automatic Entry Manual Entr y Fluoro Time 9.267 minutes 9.267 minutes 0 minutes Air kerma at the reference point (Ka,r) 135.9 mGy 1 35.9 mGy 0 mGy DLP 4,846 mGycm 4,846 mGycm 0 mGycm Resolved Problems Problem Noted Date Diagnosed Date Resolved Date Pulmonary nodule 02/04/2020 11/04/2020
--- OUTSIDE RECORDS SUMMARY | 2024-10-22 13:43 | XMS_ITS | Referral Summary ---
Author Organization [facility] [address] Address [address] [place] [address] Care Team Providers Care Stone Splitter Name Role Phone Camilo Lobato MD Unavailable +1- [phone] Rancho Howell MD Primary Care Provider +1 -[phone] Allergies Active Allergy Reactions Criticality Noted Date [...] take second tab immediately prior to scan. DISABILITY REPRESENTATIVE REQUIRED FOR MRI! 2 tablet 07/22/20 23 025 Discontin ued(Thera py completed ) Active Problems Problem Noted Date Diagnosed Date Hyperparathyroidism 09/23/2024 Hypercalcemia 05/21/2024 Kidney stone on left side 01/19/2022 Overview (01/19/2022): Added automatically from request for surgery [id number] Primary osteoarthritis of right hip 03/10/2021 Overview (03/10/2021): Added automatically from request for surgery [id number] Acute sinusitis 11/11/2020 Dehydration 11/11/2020 Jimmy's thyroiditis [...] (02/05/2020): Added automatically from request for surgery [id number] Assessment & Plan (02/19/2020 7:14 AM CDT): [...] 12/22/2018 ZOSTER LIVE 03/03/2019,12/22/2018,10/01/2007 ZOSTER Recombinant 03/03/2019,12/22/2018 Social History Tobacco Use Types Packs/Day Years [...] on file Legal Sex Female 1:20 AM 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 Gender Identity Female 04/27/2021 10:03 AM CDT Sexual Orientation Not on file Last Filed Vital Signs Vital Sign Reading Time Taken Comments Blood Pressure 153/78 05/21/2024 10:08 AM CDT Pulse 72 05/21/2024 10:08 AM CDT Temperature 36.6 C (97.8 F) 04/24/2024 9:13 AM CDT Respiratory Rate 18 04/24/2024 9:13 AM CDT Oxygen Saturation 96% 05/21/2024 10:08 AM CDT Inhaled Oxygen Concentration - - Weight 90.7 kg (200 lb) 10/19/2024 10:55 AM 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 PROFESSOR Height 174 cm (5' 8.5 ) 10/19/2024 10:55 AM 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 PROFESSOR Body Mass Index 29.97 10/19/2024 10:55 AM 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 PROFESSOR Plan of Treatment Upcoming Encounters Date Type Department Care Team (Latest Contact Info) Description 10/27/2024 7:30 AM CDT Hospital Encounter [facility] ([facility]) [address] [place] [address] Rosa Bateman MD [address] [place] [address] 10/27/2024 7:30 AM CDT Anesthesia Event [facility] ([facility]) [address] [place] [address] Samantha Moscoso NP [address] [facility] [id number] [place] [address] 10/27/2024 7:30 AM CDT - 10/27/2024 9:40 AM CDT Surgery [facility] ([facility]) [address] [place] [address] Rosa Bateman MD [address] [place] [address] PARATHYROIDECTOMY Scheduled Procedures Name Priority Associated Diagnoses Date/Ti me PARATHYROIDECTOMY Hyperparathyroidism 10/27/2024 7:30 AM CDT Medical Devices Implanted Type Area Geospatial Intelligence Analyst Device Identifier Shelf Expiration Date Model / Serial / Lot [employer] [id number] Continuum 52mm 12 Scallop Cluster Hole Snap Fit Groove Integrate - S0 - [id number] Implanted:Qty: 1 on 03/15/2021 by You Rice MD at [facility] Other - see comments Right: Hip [employer] [id number] 11/06/2030 [id number] / 0 / [id number] [employer] [id number] 52mm 36mm Hip Ii Neutral Liner Acetabular Longevity Continuum - S0 - [id number] Implanted:Qty: 1 on 03/15/2021 by You Rice MD at [facility] Other - see comments Right: Hip [employer] [id number] 10/19/2025 [id number] / 0 / [id number] [employer] [id number] Taperloc 152mm Type 1 Press Fit Reduce Hip 133d 16 Standard - S0 - [id number] Implanted:Qty: 1 on 03/15/2021 by You Rice MD at [facility] Other - see comments Right: Hip [employer] [id number] 10/12/2029 [id number] / 0 / [id number] [employer] 650-0660 G7 36mm Type 1 Modular Hip Acetabular -3mm Offset Head Femoral - S0 - [id number] Implanted:Qty: 1 on 03/15/2021 by You Rice MD at [facility] Other - see comments Right: Hip [employer] [id number] 06/20/2030 650-0660 / 0 / [id number] [employer] [id number] Trilogy 6.5mm 35mm Self Tap Screw Bone - S0 - [id number] Implanted:Qty: 1 on 03/15/2021 by You Rice MD at [facility] Screw Right: Hip [employer] [id number] 12/01/2030 [id number] / 0 / [id number] Bilateral Total Knee Arthroplasties Knee [employer] Ministerio Contour 7fr 28cm Large Inner Lumen Low Profile Bladder Odell Taper Latex Free 180-572 - [id number] Implanted:Qty: 1 on 03/14/2022 at [facility] [employer] 08/06/2024 180-234 / / [id number] Explanted Type Area Geospatial Intelligence Analyst Device Identifier Shelf Expiration Date Model / Serial / Lot [employer] Ministerio Contour 8fr 26cm Large Inner Lumen Low Profile Bladder Odell Taper Latex Free 180-335 - [id number] Explanted:Qty: 1 on 03/14/2022 at [facility] [employer] 08/20/2024 180-243 / / [id number] Insurance HEALTHCARE HEALTHCARE [facility] Advance Directives For more information, please contact: [phone] Documents on File Type Date Recorded Patient Speaking Unit Assembler Expl anation ADVANCE DIRECTIVE 02/17/2020 1:59 PM Power of Sprinkler Tender-Medical * Full Code (Latest Code Status on File) Date Activated Date Inactivated Comments 03/13/2022 8:27 AM 03/14/2022 4:49 AM * Full Code Date Activated Date Inactivated Comments 03/15/2021 5:06 PM 03/16/2021 4:32 PM * Full Code Date Activated Date Inactivated Comments 02/18/2020 2:21 PM 02/21/2020 2:34 PM Care Teams Stone Splitter Relationship Specialty Start Date End Date Rancho Howell MD [facility] [place] [address] PCP - General Family Medicine 06/18/23 [place] [address] [place] [address] Consulting Physician Urology 03/14/22
== END 2024-10-22 12:31 | disposition home or self-care (01) ==
PROVIDERS: PCP Nurse Practitioner Family; Visit Provider Nurse Practitioner Family
DX: R60.9 Edema, unspecified (principal)
CPT/HCPCS: 93971

== ENCOUNTER 2025-07-28 15:16 | Outpatient (CLI) | payer OTHER, SELFPAY ==
--- NOTE | ~2025-07-28 | MM_ITS ---
EXAMINATION: MM screening stefanie BI w lindsay HISTORY: Screening. TECHNIQUE: Craniocaudal and mediolateral oblique 3-D tomosynthesis images were obtained and synthetic 2-D images were generated. CAD analysis was submitted and interpreted. COMPARISON: 2023 BREAST PARENCHYMAL COMPOSITION: Not Dense: There are scattered areas of fibroglandular FINDINGS: There are multiple, bilateral, circumscribed nodules/masses, a benign finding. No suspicious masses are seen. There are no suspicious calcifications. No unexplained architectural distortion is seen. There are no skin or nipple abnormalities identified. There is no adenopathy seen on the images submitted. IMPRESSION: No mammographic evidence to suggest malignancy is seen. The patient may return to screening mammography as per ACR guidelines. BI-RADS 2 - Benign. Reviewed, dictated and finalized at location C. AL WORKER
--- OUTSIDE RECORDS SUMMARY | 2025-07-28 20:21 | XMS_ITS ---
Author Organization [facility] [address] Address [address] [place] [address] Care Team Providers Care Registered Nurse Obstetrics Name Role Phone Camilo Lobato MD Unavailable [phone] Efrain Galvin DO Primary Care Provider [phone] Active Problems Problem Noted Date Diagnosed Date Hyperparathyroidism 09/23/2024 Overview (11/09/2024): Parathyroidectomy Hypercalcemia 05/21/2024 Kidney stone on left side 01/19/2022 Overview (01/19/2022): Added automatically from request for surgery [id number] Primary osteoarthritis of right hip 03/10/2021 Overview (03/10/2021): Added automatically from request for surgery [id number] Acute sinusitis 11/11/2020 Dehydration 11/11/2020 Jimmy's thyroiditis [...] (02/05/2020): Added automatically from request for surgery [id number] Assessment & Plan (02/19/2020 7:14 AM CDT): [...] mGy 1 35.9 mGy 0 mGy DLP 5,263 mGycm 5,263 mGycm 0 mGycm Resolved Problems Problem Noted Date Diagnosed Date Resolved Date Pulmonary nodule 02/04/2020 11/04/2020
--- OUTSIDE RECORDS SUMMARY | 2025-07-28 20:21 | XMS_ITS | Clinical Summary ---
Author Organization [facility] [address] Address [address] [place] [address] Care Team Providers Care Marketing Regional Consultant Name Role Phone Camilo Lobato MD Unavailable [phone] Efrain Galvin DO Primary Care Provider [phone] Allergies Active Allergy Reactions Criticality Noted Date Comments Celecoxib Stomach upset Low 03/13/2021 GI Upset Medications atorvastatin (LIPITOR) 40 mg tabletIndication s:hyperlipidemia Take 1 tablet (40 mg total) by mouth nightly 2 Active losartan (COZAAR) 25 mg tabletIndication s:hypertension Take 1 tablet (25 mg total) by mouth nightly 2 Active Microlet Lancet misc USE TO TEST EVERY DAY 1 Active Contour Next One Meter misc USE TO TEST EVERY DAY 1 Active Contour Next Test Strips strip USE TO TEST EVERY DAY 1 Active amoxicillin (AMOXIL) 500 mg tablet/capsuleIn dications:Status post total replacement of right hip Take 4 tablets 1 hour prior to dental procedure or cleaning 4 tablet/capsu le 2 2 Active Additional Information Patient not taking.Reported on 06/24/2025 famotidine (PEPCID) 10 mg tabletIndication s:Heartburn,Hear tburn [...] (25 mg total) by mouth every morning 3 Active betamethasone dipropionate (DEL-BETA) 0.05 % creamIndications :Skin Inflammation,ski n rash Apply 1 Application topically daily as needed for irritation or rash 5 Active Tradjenta 5 mg tablet Take 1 tablet (5 mg total) by mouth every morning 5 Active glucosamine/maribel dr hattie fraser (OSTEO BI-FLEX [...] hours as needed (edema left foot) Active calcium carbonate (OS-NATACHA) 1,250 mg (500 mg elemental) tabletIndication s:Hypocalcemia Prevention Take 1 tablet (1,250 mg total) by mouth every 8 (eight) hours for 7 days, THEN 1 tablet (1,250 mg total) every 12 (twelve) hours for 7 days, THEN 1 tablet (1,250 mg total) daily for 7 days. 42 tablet 5 Active Additional Information Patient not taking.Reported on 06/24/2025 oxyCODONE (ROXICODONE) 5 mg immediate release tabletIndication s:Pain Take 1 tablet (5 mg total) by mouth every 4 (four) hours as needed for pain 10 tablet 03/11/202 5 Active Additional Information Patient not taking.Reported on 06/24/2025 empagliflozin-li nagliptin 25-5 mg tablet Take 25 mg by mouth daily Active Active Problems Problem Noted Date Diagnosed Date Hyperparathyroidism 09/23/2024 Overview (11/09/2024): Parathyroidectomy Hypercalcemia 05/21/2024 Kidney stone on left side 01/19/2022 Overview (01/19/2022): Added automatically from request for surgery [id number] Primary osteoarthritis of right hip 03/10/2021 Overview (03/10/2021): Added automatically from request for surgery [id number] Acute sinusitis 11/11/2020 Dehydration 11/11/2020 Jimmy's thyroiditis [...] (02/05/2020): Added automatically from request for surgery [id number] Assessment & Plan (02/19/2020 7:14 AM CDT): [...] Date Resolved Date Pulmonary nodule 02/04/2020 11/04/2020 Encounters Date Type Department Care Team Description 06/24/2025 12:00 PM FACILITIES MAINTENANCE ASSISTANT Office Visit [facility] Medicine Neurosurgery [address] [facility] Floor [address], [address] [place] [id number] Tanisha Chowdhury NP Cavernoma (Primary Dx); Meningioma (HCC) 06/24/2025 Orders Only [facility] Medicine Neurosurgery [address] [facility] 1, [address] [place] [phone] Tanisha Chowdhury NP Meningioma (HCC) (Primary Dx); Cavernoma 06/24/2025 Telephone [facility] Medicine Neurosurgery [address] [facility], [address] [place] [address] Tanisha Chowdhury NP 06/19/2025 1:31 PM CDT - 06/19/2025 11:59 PM CDT Hospital Encounter [facility] [address] [place] [address] Cerebral cavernoma Discharge Disposition: Discharge to home or self care 05/12/2025 Orders Only [facility] [address] [place] [address] Tanisha Chowdhury NP Cerebral cavernoma (Primary Dx) 05/12/2025 Telephone [facility] Medicine Scheduling [address] [place] [address] Belen Rizzo 05/05/2025 3:45 PM CDT Office Visit [facility] Medicine Surgery [address] [facility] 5 [place] [id number] Kalyan Hale MD History of lung cancer (Primary Dx) 05/05/2025 2:50 PM CDT - 05/05/2025 11:59 PM CDT Hospital Encounter [facility] [place] [address] [facility] [address] [place] [address] Adenocarcinoma of right lung (HCC) Discharge Disposition: Discharge to home or self care from Last 3 Months Immunizations Immunization Administration Dates Next Due Influenza, [...] pain Hyperparathyroidism Kidney stone History of stroke 2018 brain bleed pe r pt Stroke (HCC) 2020 Family History Medical History Relation Name Comments [...] containing alc ohol? 2-4 times a month 10/27/2024 Q2: How many drinks containi ng alcohol do you have on a typical day when you are drinking? 1 or 2 10/27/2024 Q3: How often do you have si x or more drinks on one occasion? Never 10/27/2024 Personal Safety Answer Date Recorded Have you ever been in or are you currently in a harmful physical or emotional relationship or is someone making you feel afraid or unsafe? Denies 10/27/2024 Comments No Sex and Gender Information Value Date Recorded Sex Assigned at Not on file Legal Sex Female 1:20 AM FACILITIES MAINTENANCE ASSISTANT Gender Identity Female 04/27/2021 10:03 AM CDT Sexual Orientation Not on file Last Filed Vital Signs Vital Sign Reading Time Taken Comments Blood Pressure 120/70 06/24/2025 12:03 PM FACILITIES MAINTENANCE ASSISTANT Pulse 79 06/24/2025 12:03 PM FACILITIES MAINTENANCE ASSISTANT Temperature 36.4 C (97.6 F) 06/24/2025 12:03 PM FACILITIES MAINTENANCE ASSISTANT Respiratory Rate 18 06/24/2025 12:03 PM FACILITIES MAINTENANCE ASSISTANT Oxygen Saturation 94% 06/24/2025 12:03 PM FACILITIES MAINTENANCE ASSISTANT Inhaled Oxygen Concentration - - Weight 85.9 kg (189 lb 6.4 oz) 06/24/2025 12:03 PM FACILITIES MAINTENANCE ASSISTANT Height 175.3 cm (5' 9) 06/24/2025 12:03 PM FACILITIES MAINTENANCE ASSISTANT Body Mass Index 27.97 06/24/2025 12:03 PM FACILITIES MAINTENANCE ASSISTANT Plan of Treatment Health Maintenance Due Date Last Done Comments Depression Screening 1940 Osteoporosis Screening-Bone Density Scan 1942 Hepatitis B Screening 1960 Well Visit 65+ 2007 Covid-19 Vaccine (2024-2 6 season) 2025 11/16/2021, 05/21/2021, 09/28/2020, Additional history exists Influenza Vaccine (#1) 2025 , 05/27/2020, 06/01/2017, Additional history exists Fall Risk Assessment 10/27/2025 10/27/2024 DTaP/Tdap/Td Vaccine (2 - Td or Tdap) 12/22/2028 12/22/2018 Pneumococcal vaccine 65+ Completed 019, 06/23/2017, 01/31/2016, Additional history exists Zoster Vaccine Completed 03/03/2019, 02/16, 12/22/2018, Additional history exists Medical Devices Implanted Type Area Mucker Operator Device Identifier Shelf Expiration Date Model / Serial / Lot [employer] [id number] Continuum 52mm 12 Scallop Cluster Hole Snap Fit Groove Integrate - S0 - [id number] Implanted:Qty: 1 on 03/15/2021 by You Rice MD at [facility] Other - see comments Right: Hip [employer] [id number] 11/06/2030 [id number] / 0 / [id number] [employer] [id number] 52mm 36mm Hip Ii Neutral Liner Acetabular Longevity Continuum - S0 - [id number] Implanted:Qty: 1 on 03/15/2021 by You Rice MD at [facility] Other - see comments Right: Hip [employer] [id number] 10/19/2025 [id number] / 0 / [id number] [employer] [id number] Taperloc 152mm Type 1 Press Fit Reduce Hip 133d 16 Standard - S0 - [id number] Implanted:Qty: 1 on 03/15/2021 by You Rice MD at [facility] Other - see comments Right: Hip [employer] [id number] 10/12/2029 [id number] / 0 / [id number] [employer] 650-0660 G7 36mm Type 1 Modular Hip Acetabular -3mm Offset Head Femoral - S0 - [id number] Implanted:Qty: 1 on 03/15/2021 by You Rice MD at [facility] Other - see comments Right: Hip [employer] [id number] 06/20/2030 650-0660 / 0 / [id number] [employer] [id number] Trilogy 6.5mm 35mm Self Tap Screw Bone - S0 - [id number] Implanted:Qty: 1 on 03/15/2021 by You Rice MD at [facility] Screw Right: Hip [employer] [id number] 12/01/2030 [id number] / 0 / [id number] Bilateral Total Knee Arthroplasties Knee navigaya Ministerio Contour 7fr 28cm Large Inner Lumen Low Profile Bladder Odell Taper Latex Free 180-234 - [id number] Implanted:Qty: 1 on 03/14/2022 at [facility] [employer] 08/06/2024 180-234 / / [id number] Explanted Type Area Mucker Operator Device Identifier Shelf Expiration Date Model / Serial / Lot [employer] Ministerio Contour 8fr 26cm Large Inner Lumen Low Profile Bladder Odell Taper Latex Free 180-243 - [id number] Explanted:Qty: 1 on 03/14/2022 at [facility] [employer] 08/20/2024 180-243 / / [id number] Procedures Procedure Name Priority Date/Time Associated Diagnosis Comments MRI BRAIN TUMOR W WO CONTRAST Schedule Routine, Read Routine (OP Routine) 06/19/2025 2:29 PM CDT Cerebral cavernoma CT CHEST WO CONTRAST Schedule Routine, Read Routine (OP Routine) 05/05/2025 3:08 PM CDT Adenocarcinoma of right lung (HCC) from Last 3 Months Results * MRI Brain Tumor W WO Contrast (06/19/2025 2:29 PM CDT) Anatomical Region Laterality Modality Head and Neck N/A Magnetic Resonan ce 06/19/2025 3:52 PM CDT Impressions 06/19/2025 5:08 PM CDT 1. Stable right thalamus cavernoma. 2. Small left lateral frontal convexity meningioma, slightly increased in size. Dictated by: Oz Bolden M.D. The radiology attending physician has personally reviewed this study, and had reviewed and/or edited this written report and agrees with it. Electronically signed by: Oz Randle MD Narrative 06/19/2025 5:08 PM CDT EXAMINATION: Magnetic resonance imaging (MRI) of the brain and brainstem without and with contrast HISTORY: Right thalamic cavernoma follow-up. TECHNIQUE: Multiplanar multi-weighted MRI of the brain and brainstem was performed without and with intravenous contrast using the brain tumor protocol. This included high-resolution 3D T1-weighted images without and with intravenous contrast and dynamic susceptibility contrast data for perfusion analysis. Contrast information: 16 mL Gadoterate Meglumine IV COMPARISON: 07/24/2023 MRI brain, 01/06/2021 MRI brain FINDINGS: Again seen is a T2/FLAIR hyperintense, enhancing exophytic lesion in the right thalamus with susceptibility, in keeping with patient's history of suspected cavernoma. The lesion extends into the right lateral ventricle. This lesion measures approximately 10 mm and is unchanged dating back to 01/06/2021 MRI. There is additionally a small left lateral frontal convexity meningioma which was retrospectively present on 07/24/2023 MRI (series 32 image 22). It is slightly increased in size, now measuring 6 mm compared to 4 mm prior. There is no mass effect from this lesion. Scattered small foci of T2 prolongation in the periventricular and subcortical white matter are nonspecific, likely on the basis of chronic small vessel ischemic change. There is mild parenchymal volume loss. The scalp and calvarium are normal. The superior sagittal sinus demonstrates normal venous flow. The corpus callosum is normal in shape and signal intensity. The posterior fossa is unremarkable. The pituitary and sella are normal. The brainstem and craniocervical junction are unremarkable. Diffusion weighted images reveal no hyperintensities to suggest acute cerebral infarction. The ventricles are normal in size and position without evidence of hydrocephalus. The paranasal sinuses are normal. The visualized portions of the mastoids are unremarkable. Bilateral lens replacements. Normal flow voids are demonstrated in the carotid arteries and basilar artery. Procedure Note Oz Randle MD PhD - 06/19/2025 EXAMINATION: Magnetic resonance imaging (MRI) of the brain and brainstem without and with contrast HISTORY: Right thalamic cavernoma follow-up. TECHNIQUE: Multiplanar multi-weighted MRI of the brain and brainstem was performed without and with intravenous contrast using the brain tumor protocol. This included high-resolution 3D T1-weighted images without and with intravenous contrast and dynamic susceptibility contrast data for perfusion analysis. Contrast information: 16 mL Gadoterate Meglumine IV COMPARISON: 07/24/2023 MRI brain, 01/06/2021 MRI brain FINDINGS: Again seen is a T2/FLAIR hyperintense, enhancing exophytic lesion in the right thalamus with susceptibility, in keeping with patient's history of suspected cavernoma. The lesion extends into the right lateral ventricle. This lesion measures approximately 10 mm and is unchanged dating back to 01/06/2021 MRI. There is additionally a small left lateral frontal convexity meningioma which was retrospectively present on 07/24/2023 MRI (series 32 image 22). It is slightly increased in size, now measuring 6 mm compared to 4 mm prior. There is no mass effect from this lesion. Scattered small foci of T2 prolongation in the periventricular and subcortical white matter are nonspecific, likely on the basis of chronic small vessel ischemic change. There is mild parenchymal volume loss. The scalp and calvarium are normal. The superior sagittal sinus demonstrates normal venous flow. The corpus callosum is normal in shape and signal intensity. The posterior fossa is unremarkable. The pituitary and sella are normal. The brainstem and craniocervical junction are unremarkable. Diffusion weighted images reveal no hyperintensities to suggest acute cerebral infarction. The ventricles are normal in size and position without evidence of hydrocephalus. The paranasal sinuses are normal. The visualized portions of the mastoids are unremarkable. Bilateral lens replacements. Normal flow voids are demonstrated in the carotid arteries and basilar artery. IMPRESSION: 1. Stable right thalamus cavernoma. 2. Small left lateral frontal convexity meningioma, slightly increased in size. Dictated by: Oz Bolden M.D. The radiology attending physician has personally reviewed this study, and had reviewed and/or edited this written report and agrees with it. Electronically signed by: Oz Randle MD [facility] Yina Chowdhury NP IM MRI PROCEDURES Final Resul t * CT Chest WO Contrast (05/05/2025 3:08 PM CDT) Anatomical Region Laterality Modality Body N/A Computed Tomogra phy 05/05/2025 3:23 PM CDT Impressions 05/05/2025 3:23 PM CDT 1. New indeterminate sclerotic bone lesions in the T5 and T8 vertebral bodies. Given the absence of suspected disease elsewhere in the chest, this pattern would be unusual for development of metastatic disease. Options for further management include a nuclear bone scintigraphy to assess for other lesions, short-term follow-up imaging in [address] (or PET/CT), or tissue sampling. 2. Posttreatment changes in the lungs without suspicious pulmonary findings. Electronically signed by: Cheng Puga M.D. Narrative 05/05/2025 3:23 PM CDT EXAMINATION: Computed tomography of the chest without intravenous contrast HISTORY: Non-small cell lung cancer TECHNIQUE: Transaxial computed tomographic images of the chest were obtained without intravenous contrast according to the standard protocol. COMPARISON: 04/24/2024, 04/26/2023, 05/02/2022 FINDINGS: Unchanged peripheral groundglass opacities/scarring in the right middle lobe on series 3 image 85. Postsurgical changes of right upper lobectomy. Probable scarring in the lingula on series 3 image 120. A 9 mm anterior left upper lobe nodule on series 3 image 68 adjacent smaller nodules is unchanged dating back through remote priors. No suspicious pulmonary nodules, pleural effusion, pneumothorax, pneumonia, or pulmonary edema. No supraclavicular, axillary, mediastinal, or hilar lymphadenopathy. Normal heart size with coronary artery calcifications but no pericardial effusion. The thoracic aorta and esophagus are normal caliber. No acute abnormality of the imaged upper abdomen. New sclerotic bone lesions are noted in the T5 and T8 vertebral bodies Procedure Note Cheng Puga MD - 05/05/2025 EXAMINATION: Computed tomography of the chest without intravenous contrast HISTORY: Non-small cell lung cancer TECHNIQUE: Transaxial computed tomographic images of the chest were obtained without intravenous contrast according to the standard protocol. COMPARISON: 04/24/2024, 04/26/2023, 05/02/2022 FINDINGS: Unchanged peripheral groundglass opacities/scarring in the right middle lobe on series 3 image 85. Postsurgical changes of right upper lobectomy. Probable scarring in the lingula on series 3 image 120. A 9 mm anterior left upper lobe nodule on series 3 image 68 adjacent smaller nodules is unchanged dating back through remote priors. No suspicious pulmonary nodules, pleural effusion, pneumothorax, pneumonia, or pulmonary edema. No supraclavicular, axillary, mediastinal, or hilar lymphadenopathy. Normal heart size with coronary artery calcifications but no pericardial effusion. The thoracic aorta and esophagus are normal caliber. No acute abnormality of the imaged upper abdomen. New sclerotic bone lesions are noted in the T5 and T8 vertebral bodies IMPRESSION: 1. New indeterminate sclerotic bone lesions in the T5 and T8 vertebral bodies. Given the absence of suspected disease elsewhere in the chest, this pattern would be unusual for development of metastatic disease. Options for further management include a nuclear bone scintigraphy to assess for other lesions, short-term follow-up imaging in [address] (or PET/CT), or tissue sampling. 2. Posttreatment changes in the lungs without suspicious pulmonary findings. Electronically signed by: Cheng Puga M.D. Cher Garnica BAND LINING BANDER IMG CT PROCEDURES Final Result from Last 3 Months Insurance [employer] [id number] [facility] Advance Directives For more information, please contact: [phone] Documents on File Type Date Recorded Patient Replacer Expl anation ADVANCE DIRECTIVE 02/17/2020 1:59 PM Power of Chest Painting Leader-Medical * Full Code (Latest Code Status on File) Date Activated Date Inactivated Comments 03/13/2022 8:27 AM 03/14/2022 4:49 AM * Full Code Date Activated Date Inactivated Comments 03/15/2021 5:06 PM 03/16/2021 4:32 PM * Full Code Date Activated Date Inactivated Comments 02/18/2020 2:21 PM 02/21/2020 2:34 PM Care Teams Marketing Regional Consultant Relationship Specialty Start Date End Date Efrain Galvin DO [address] [place] [address] PCP - General Internal Medicine 06/19/25 Camilo Lobato MD Consulting Physician Urology 03/14/22
--- OUTSIDE RECORDS SUMMARY | 2025-07-28 20:21 | XMS_ITS | Encounter Summary ---
Author Organization [facility] Healthcare Address [address] [place] [address] Care Team Providers Care Beef Grader Name Role Phone Rose Marie Pineda DO Primary Care Provider + Camilo Lobato MD Unavailable [phone]- [phone] Rancho Howell MD Primary Care Provider [phone] Efrain Galvin DO Primary Care Provider [phone] Encounter Details Date Type Department Care Team (Late st Contact Info) Description 02/12/2020 Telephone [facility] ([facility]) [address] [place] [id number] [address], RT Social History Tobacco Use Types Packs/Day Years Used Date Smoking Tobacco: Never Smokeless Tobacco: Never Alcohol Use Standard Drinks/Week Comments Yes 0 (1 standard drink = 0.6 oz pur e alcohol) socially Comments Unknown Sex and Gender Information Value Date Recorded Sex Assigned at Not on file Legal Sex Female 1:20 AM 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 Gender Identity Female 04/27/2021 10:03 AM CDT Sexual Orientation Not on file documented as of this encounter Plan of Treatment Not on file documented as of this encounter Visit Diagnoses Not on filedocumented in this encounter Care Teams Beef Grader Relationship Specialty Start Date End Date Rose Marie Pineda DO [address] [place] [address] PCP - General Family Medicine 12/07/19 06/17/23 Rancho Howell MD [address] [place] [address] PCP - General Family Medicine 06/18/23 06/18/25 Efrain Galvin DO [address] [place] [address] PCP - General Internal Medicine 06/19/25 Camilo Lobato MD [address] [place] [address] Consulting Physician Urology 03/14/22 documented as of this encounter
== END 2025-07-28 15:17 | disposition home or self-care (01) ==
LOC: ANHFOHIMG 15:18
PROVIDERS: PCP Nurse Practitioner Family; Visit Provider Internal Medicine
DX: Z12.31 Encounter for screening mammogram for malignant neoplasm of breast (principal)
CPT/HCPCS: 77063; 77067